=== PATIENT | male | born 1945 | race Caucasian/White ===

== ENCOUNTER → 2019-10-19 11:42 | Outpatient (BNVA) | payer MEDICARE, SELFPAY | PROVIDERS: Family Provider Nurse Practitioner Family; PCP Nurse Practitioner Family; Visit Provider Urology | DX: R97.20 Elevated prostate specific antigen [PSA] (principal); N40.1 Benign prostatic hyperplasia with lower urinary tract symptoms; N99.89 Other postprocedural complications and disorders of genitourinary system | CPT/HCPCS: 81001; 84153 ==

== ENCOUNTER 2019-10-30 10:37 | Outpatient (CLI) | payer MEDICARE, SELFPAY ==
--- NOTE | 2019-10-30 10:50 | XR_ITS ---
WS: [id number] PROCEDURE: XR chest 2V* [id number] CLINICAL INFORMATION: COPD COMPARISON: FINDINGS: Heart: Cardiomegaly. Lungs: Chronic emphysematous changes. No acute pulmonary infiltrates. A few calcified granulomas. Gordon gical clips at the base of the neck. No focal pneumonia. Bones: Normal visualized bony structures. XR/XR chest 2V* [id number] IMPRESSION: 1. Chronic emphysematous changes appear stable. 2. No new pulmonary infiltrates. 3. A few calcified granulomas.
== END 2019-10-30 10:38 | disposition home or self-care (01) ==
PROVIDERS: Family Provider Nurse Practitioner Family; PCP Nurse Practitioner Family; Visit Provider Nurse Practitioner Family
DX: J44.9 Chronic obstructive pulmonary disease, unspecified (principal); E87.1 Hypo-osmolality and hyponatremia
CPT/HCPCS: 71046

== ENCOUNTER 2019-11-08 03:13 | Emergency (ER) | payer MEDICARE, SELFPAY ==
[2019-11-08 03:18] VITALS: BP 141/106; PULSE 73; RESP 16; TEMP 37; O2SAT 95; BMI 28.0
--- NOTE | 2019-11-08 03:32 | ED_ITS ---
HPI - General Adult General: Chief complaint: General Medical Stated complaint: UNCONTROLLED SHAKING Time Seen by Provider: 11/08/19 03:16 Source: patient Mode of arrival: ambulatory Limitations: no limitations History of Present Illness: HPI narrative: Patient is a 73-year-old male states he has had a increasing tremor over the last 3 to 4 days. He is started on a new medicine finasteride which he stopped taking a week ago as he felt it was making his tremors worse. He states that he is unable to sleep due to the tremors. He states he also has history of thyroid issues. He denies any worsening improving factors. He denies any pain. He denies any fevers. MD complaint: tremors Onset (ago): day(s) Severity: moderate Relieving factors: none Exacerbating factors: none Associated symptoms: Deny chest pain, dyspnea, headache(s), nausea, rash or vomiting Review of Systems Const: Denies: fever, chills, body aches or change in appetite Eyes: Denies: blurry vision or eye discomfort ENMT: Denies: throat pain or dental pain Card: Denies: chest pain Resp: Denies: shortness of breath GI: Denies: abdominal pain, nausea, vomiting or diarrhea : Denies: painful urination Musc: Denies: neck pain or back pain Skin/Breast: Denies: rash Neuro: Denies: headache Psych: Denies: depression Damion/Lymph: Denies: easy bruising All/Imm: Denies: hives PFSH ED PFSH: Medical History (Updated 11/08/19 @ 04:47 by Eula Clay MD) BPH NOS w ur obs/LUTS COPD (chronic obstructive pulmonary disease) Elevated PSA Social History (Updated 10/16/19 @ 10:17 by Neha Vann RN) Smoking and tobacco status: former smoker Alcohol intake: never Marital status: Current occupational status: retired Physical Exam Const: COMMON NORMALS: no apparent distress, oriented x3 and healthy appearing HENMT: COMMON NORMALS: normocephalic and head/scalp atraumatic HEAD & SCALP: normocephalic and atraumatic Eye: COMMON NORMALS: PERRL and EOMs intact bilaterally PUPIL: Yes PERRL Neck/C-Spine: COMMON NORMALS: full ROM and supple Chest: COMMONS NORMALS: inspection of chest normal and palpation of chest normal Resp: COMMON NORMALS: normal respiratory effort, no retractions, no use of accessory muscles and clear to auscultation bilaterally AUSCULTATION: clear to auscultation bilaterally Cardio: COMMON NORMALS: regular rate, regular rhythm and no murmurs RATE: regular rate RHYTHM: regular rhythm GI: COMMON NORMALS: normal to inspection, nondistended, normoactive bowel sounds, soft to palpation, non-tender and no masses PALPATION: Yes soft Extremity: COMMON NORMALS: normal to inspection and full ROM NARRATIVE EXTREMITY EXAM: resting tremor Neuro: COMMON NORMALS: oriented x3, moves all extremities and no focal motor deficits Psych: COMMON NORMALS: mental status grossly normal, thought process normal and cooperative THOUGHT PROCESS: normal thought process Skin: COMMON NORMALS: no rashes or lesions noted and no wounds GENERAL SKIN EXAM: no rashes or lesions noted Course Vital Signs: Vital signs: Vital Signs Temperature 98.6 F 11/08/19 03:18 Pulse Rate 52 L 11/08/19 04:32 Respiratory Rate 18 11/08/19 04:32 Blood Pressure 136/103 11/08/19 04:32 Pulse Oximetry 98 11/08/19 04:32 MDM - General Adult MDM Narrative: Medical decision making narrative: Patient presents here with tremor is resolved with Ativan. Patient's TSH here is normal. This could been due to the new medicine finasteride he is to stop it. Patient is stable for discharge and is to return if worsening. Lab Data: Labs: Lab Results 11/08/19 Range/Units 03:50 TSH 4.96 H (0.27-4.20) uIU/ mL Discharge Plan Discharge Patient Disposition: Home, Self-Care Clinical Impression: Tremor Condition: Stable Prescriptions: No Action Spiriva Respimat 1.25 mcg/actuation mist 2 puff INHALATION QDAY RF: 0 Complete Multivitamin Tablet 1 tab PO QDAY RF: 0 albuterol sulfate 90 mcg/actuation HFA aerosol inhaler 2 puff INHALATION Q6H PRN (Reason: Shortness Of Breath) RF: 0 Daliresp 500 mcg tablet 500 mcg PO QDAY RF: 0 fluticasone propionate [Allergy Relief (fluticasone)] 50 mcg/actuation spray,suspension 1 spray INTRANASAL QDAY RF: 0 loratadine 10 mg capsule 10 mg PO QDAY RF: 0 pantoprazole 40 mg tablet,delayed release (DR/EC) 40 mg PO QDAY RF: 0 montelukast [Singulair] 10 mg tablet 10 mg PO QDAY RF: 0 levothyroxine [Synthroid] 125 mcg tablet 125 mcg PO QDAY RF: 0 tamsulosin 0.4 mg capsule 0.4 mg PO QDAY RF: 0 Discharge Orders: Discharge Order (Routine); Ordered 11/08/19 Ordered By: Eula Clay Referrals: Ba Humphries FNP [Family Provider] - Kincaid,DIONE Ram [Primary Care Provider] - 4-7 days Discharge Diet: Advance as tolerated Discharge Activity: Resume usual activity Discharge Date/Time: 11/08/19 04:55 Coding Level of Care Code ED Physical Laboratory Assistant for Chg Fwd Exam Problem Focused
[2019-11-08] MEDS: LORazepam 2 mg/mL INJ 1 mL 1 MG IVP (03:48)
[2019-11-08 04:32] VITALS: BP 136/103; PULSE 52; RESP 18; O2SAT 98
[2019-11-08 04:35] LABS: Thyroid Stimulating Hormone 4.96 uIU/mL (0.27-4.20)
[2019-11-08 04:54] VITALS: BP 139/91; PULSE 54; RESP 20; O2SAT 96
== END 2019-11-08 04:55 | disposition home or self-care (01) ==
PROVIDERS: Emergency Provider Emergency Medicine; Family Provider Nurse Practitioner Family; PCP Nurse Practitioner Family
DX: R25.1 Tremor, unspecified (principal); J44.9 Chronic obstructive pulmonary disease, unspecified
CPT/HCPCS: 36415; 84443; 96374; 96375; 99282; 99283; J2060

== ENCOUNTER → 2020-03-20 07:44 | Outpatient (BNVA) | payer MEDICARE, SELFPAY | PROVIDERS: Family Provider Nurse Practitioner Family; PCP Nurse Practitioner Family; Visit Provider Urology | DX: N40.1 Benign prostatic hyperplasia with lower urinary tract symptoms (principal); R97.20 Elevated prostate specific antigen [PSA] | CPT/HCPCS: 81001; 84153 ==

== ENCOUNTER 2020-04-18 09:05 | Outpatient (CLI) | payer MEDICARE, SELFPAY ==
--- NOTE | 2020-04-18 09:10 | US_ITS ---
WS: [id number] ULTRASOUND SOFT TISSUES RIGHT wrist HISTORY: Ganglion CYST OF WRIST COMPARISON: None available. TECHNIQUE: 2-D and color Doppler imaging is submitted. Ultrasound is directed to the area of concern along the medial wrist. There is a soft tissue predomin antly cystic mass which is very superficial measuring 6 mm in diameter. No tract extending to the sof t tissue. US/US soft tissue/extremity [id number] IMPRESSION: Very superficial predominantly cystic mass in the medial wrist. Differential in cludes ganglion and sebaceous cyst.
== END 2020-04-18 09:06 | disposition home or self-care (01) ==
PROVIDERS: PCP Nurse Practitioner Family; Visit Provider Nurse Practitioner Family
DX: M67.431 Ganglion, right wrist (principal); L72.3 Sebaceous cyst
CPT/HCPCS: 76882

== ENCOUNTER → 2020-05-19 08:39 | Outpatient (BNVA) | payer MEDICARE, SELFPAY | PROVIDERS: PCP Nurse Practitioner Family; Referring Provider Nurse Practitioner Family; Visit Provider Specialist | DX: M67.40 Ganglion, unspecified site (principal); R22.31 Localized swelling, mass and lump, right upper limb | CPT/HCPCS: 73110 ==

== ENCOUNTER → 2020-10-22 18:00 | Outpatient (BNVA) | payer MEDICARE, SELFPAY | PROVIDERS: PCP Nurse Practitioner Family; Visit Provider Family Medicine | DX: J44.9 Chronic obstructive pulmonary disease, unspecified (principal); K21.9 Gastro-esophageal reflux disease without esophagitis; N40.1 Benign prostatic hyperplasia with lower urinary tract symptoms; Z13.1 Encounter for screening for diabetes mellitus; Z13.6 Encounter for screening for cardiovascular disorders; Z76.89 Persons encountering health services in other specified circumstances; E89.0 Postprocedural hypothyroidism | CPT/HCPCS: 80053; 80061; 84443; 85025 ==

== ENCOUNTER → 2021-03-12 11:19 | Outpatient (BNVA) | payer MEDICARE, SELFPAY | PROVIDERS: PCP Family Medicine; Visit Provider Family Medicine | DX: J44.9 Chronic obstructive pulmonary disease, unspecified (principal); N40.1 Benign prostatic hyperplasia with lower urinary tract symptoms; K21.9 Gastro-esophageal reflux disease without esophagitis; E89.0 Postprocedural hypothyroidism; J18.9 Pneumonia, unspecified organism | CPT/HCPCS: 80053; 84439; 84443; 84481; 85025 ==

== ENCOUNTER 2021-03-18 11:50 | Outpatient (CLI) | payer MEDICARE, SELFPAY ==
--- NOTE | 2021-03-18 12:16 | CT_ITS ---
WS: [id number] LDCT LUNG CANCER SCREENING HISTORY: Z87.891 - Personal history of nicotine dependence TECHNIQUE: Axial imaging performed from the apices to 1 cm below the costophrenic angles. Coronal and sagittal reformats are submitted with axial MIP series. All CT scans at [facility] use at least one of these dose optimization techniques: automated exposure control; mA and/or kV adjustment per patient size (includes targeted exams where dose is matched to clinical indication); or iterativ e reconstruction. DLP: 70.52 mGy.cm DIvol: 1.58 mGy,1.58 mGy,1.58 mGy COMPARISON: 10/30/2017 Diagnostic quality: Satisfactory Lung Nodules: No new or suspicious pulmonary nodules. Lungs: Mild hyperinflation. There are scattered pleural-based plaques bilaterally consistent with asb estos exposure. Subsegmental areas of atelectasis at the lung bases with a few granulomata. There is mild thickening along the pleura. No pneumonia. Heart: Mild enlargement of the heart. No effusion. Other findings: Mild atherosclerosis aorta. No adenopathy. No hiatal hernia. CT/CT lung screening [id number] IMPRESSION: LUNG-RADS: 2-Benign Appearance or Behavior FOLLOW UP: 12 Month: Continue annual screening with LDCT OTHER FINDINGS (S MODIFIER): None.
== END 2021-03-18 11:51 | disposition home or self-care (01) ==
LOC: RAD 12:02
PROVIDERS: PCP Family Medicine; Visit Provider Internal Medicine Critical Care Medicine
DX: Z12.2 Encounter for screening for malignant neoplasm of respiratory organs (principal); Z87.891 Personal history of nicotine dependence
CPT/HCPCS: 71271

== ENCOUNTER → 2021-03-23 09:22 | Outpatient (BNVA) | payer MEDICARE, SELFPAY | PROVIDERS: PCP Family Medicine; Visit Provider Urology | DX: N40.1 Benign prostatic hyperplasia with lower urinary tract symptoms (principal); R97.20 Elevated prostate specific antigen [PSA] | CPT/HCPCS: 81003; 84153 ==

== ENCOUNTER → 2021-04-27 15:52 | Outpatient (BNVA) | payer MEDICARE, SELFPAY | PROVIDERS: PCP Family Medicine; Visit Provider Family Medicine | DX: E89.0 Postprocedural hypothyroidism (principal) | CPT/HCPCS: 84439; 84443; 84481 ==

== ENCOUNTER 2021-09-09 09:31 | Inpatient (IN) | payer MEDICARE, SELFPAY ==
[2021-09-09] VITALS (12 sets, daily range): BP systolic 110–137; BP diastolic 68–112; PULSE 71–119; RESP 12–94; TEMP 36.6–36.9; O2SAT 88–96; BMI 28.2
--- NOTE | 2021-09-09 10:01 | XR_ITS ---
WS: [id number] XR chest 1V portable [id number] REASON FOR EXAM: SOB FINDINGS: The chest is unchanged compared to 01/14/2020. Moderate tortuosity the thoracic aorta. Mild cardiomegaly. Chronic interstitial changes and calcified granulomatous disease in both hemithoraces. Pleural plaques. No acute pulmonary parenchymal or pleural abnormality. XR/XR chest 1V portable [id number] IMPRESSION: No acute chest abnormality.
--- NOTE | 2021-09-09 10:02 | ECG_ITS ---
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 Measurements Intervals [place] Rate: 119 P: 261 NM: 184 QRS: -49 QRSD: 99 T: 266 QT: 411 QTc: 580 Interpretive Statements Atrial flutter POSSIBLE RIGHT VENTRICULAR CONDUCTION DELAY [RSR (QR) IN V1/V2] LEFT ANTERIOR FASCICULAR BLOCK [QRS AXIS <= -45, QR IN I, RS IN II] POSSIBLE ANTERIOR MYOCARDIAL INFARCTION , OF INDETERMINATE AGE [30 ms Q WAVE IN V3/V4, OR R < 0.2 mV IN V4] MODERATE T-WAVE ABNORMALITY, CONSIDER LATERAL ISCHEMIA [-0.1+ mV T-WAVE IN I/aVL/V5/V6] MODERATE T-WAVE ABNORMALITY, CONSIDER INFERIOR ISCHEMIA [-0.1+ mV T-WAVE IN II/aVF] Compared to ECG 01/08/2018 06:40:17 Left anterior fascicular block now present.Myocardial infarct finding now present.T-wave abnormality now present.Possible ischemia now present Sinus rhythm no longer present.Ventricular premature complex(es) no longer present.Incomplete right bundle-branch block no longer present Electronically Signed On 09-09-2021 22:00:15 RADIO PRESENTER by Wilfredo Su M.D. [email or web address]
--- NOTE | 2021-09-09 10:10 | W.ED.SOB ---
Documented by User: MYRIAM Bobo 09/10/21 07:26 HPI - SOB/Dyspnea General: Chief Complaint: Shortness of Breath/Dyspnea Stated Complaint: DIFF BREATHING; HEART FLUTTER Time Seen by Provider: 09/09/21 10:01 History of Present Illness: HPI Narrative: Patient is a 75-year-old male who comes to the ED with shortness of breath and palpitations. Patient has a past medical history of hypothyroidism, GERD, COPD and BPH. Patient notes main complaint of shortness of breath and palpitations started when he woke up this morning. He recently had a dose change on his thyroid medication approximately a month and a half ago. Since thyroid medication dose was adjusted he states he has been having these episodes of palpitations. They usually occur after he takes his thyroid medication but do not last for very long and resolved. This morning he woke up with the palpitations and after he took his thyroid medication this morning his palpitations and shortness of breath got a little worse and have not resolved. He denies any chest pain, hemoptysis, diaphoresis, nausea/vomiting, abdominal pain, bladder or bowel symptoms. Associated symptoms: Reports palpitations; Deny abdominal pain, chest pain, fever(s), nausea, orthopnea or vomiting Review of Systems Const: Denies: fever(s), chills or fatigue Eyes: Denies: change in vision or eye discomfort ENMT: Denies: throat pain, odynophagia, nasal discharge or nasal congestion Card: Reports: palpitations; Denies: chest pain, edema, swelling of feet/ankles, dyspnea on exertion or orthopnea Resp: Reports: dyspnea; Denies: productive cough or non-productive cough GI: Denies: abdominal pain, nausea, vomiting, diarrhea, constipation or hematochezia : Denies: flank pain, difficulty urinating, dysuria or hematuria Musc: Denies: neck pain, back pain or extremity swelling Skin/Breast: Denies: rash or new lesions Neuro: Denies: headache(s), numbness in extremities or weakness in extremities PFSH ED PFSH: Medical History BPH NOS w ur obs/LUTS COPD (chronic obstructive pulmonary disease) Elevated PSA GERD (gastroesophageal reflux disease) Hypothyroidism Seasonal allergies Subcutaneous mass of right forearm Surgical History H/O thyroidectomy S/P hernia repair bilateral inguinal Family History Father , AT AGE 60 ABESTOS No problems noted. Mother , AT IN HER 80'S No problems noted. Social History Smoking and tobacco status: former smoker Quit status (tobacco): has quit using tobacco Year quit tobacco: 2016 Former quit date comment: Hx of 1 PPD x 50 Years Second hand smoke exposure: No Smoking risk assessment/counseling performed?: No Alcohol intake: current Alcohol intake frequency: few times a week Alcohol type: hard liquor Counseling given: No Counseling given: No Lives independently: Yes Household members: spouse Marital status: Current occupational status: retired History of recent travel: No Current gender identity: Male Physical Exam Const: COMMON NORMALS: no acute distress, patient oriented x3 and alert GENERAL APPEARANCE: cooperative and comfortable HENMT: COMMON NORMALS: normocephalic HEAD & SCALP: normocephalic MOUTH: Normal oral and palatal mucosa present THROAT: posterior oropharynx normal and uvula midline Neck/C-Spine: COMMON NORMALS: supple GENERAL: Yes normal visual inspection Resp: COMMON NORMALS: normal respiratory effort, No retractions, No use of accessory muscles and clear to auscultation bilaterally AUSCULTATION: clear to auscultation bilaterally Cardio: COMMON NORMALS: regular rhythm, S1 normal heart sound present, S2 normal heart sound present, No gallops present (Cardio), No clicks present (Cardio), No murmurs present (Cardio) and Peripheral pulses 2+ throughout RATE: tachycardic (120) RHYTHM: regular rhythm HEART SOUNDS: S1 normal heart sound present and S2 normal heart sound present PERIPHERAL PULSES: Peripheral pulses 2+ throughout GI: COMMON NORMALS: Normal to inspection, nondistended, normoactive bowel sounds present, Soft to palpation, non-tender and no masses PALPATION: Yes Soft to palpation : COMMON NORMALS: Yes no CVA tenderness BLADDER/KIDNEY EXAM: Yes no CVA tenderness Back/Pelvis: COMMON NORMALS: no CVA tenderness Extremity: COMMON NORMALS: normal to inspection Neuro: COMMON NORMALS: patient oriented x3 and moves all extremities SENSORIUM/ORIENTATION: Yes alert Skin: GENERAL SKIN EXAM: dry skin Course Vital Signs: Vital signs: Vital Signs Temperature 98.3 F 09/10/21 04:00 Pulse Rate 74 09/10/21 04:00 Respiratory Rate 17 09/10/21 04:00 Blood Pressure 100/67 09/10/21 04:00 Pulse Oximetry 93 09/10/21 04:00 MDM - SOB/Dyspnea MDM Narrative: Medical decision making narrative: Patient is a 75-year-old male comes to the ED with palpitations and shortness of breath. Denies any chest pain. Patient has no history of arrhythmia. Patient is tachycardic here in the ED with a rate of 119. Exam of patient is benign besides tachycardic heart rate. Troponins were negative. BNP-2,155. EKG showed an ectopic atrial tachycardia. Possible new onset of A. fib. D-dimer and TSH are elevated. I went and talked to Dr. Dinero about patient case and possible new onset of A. fib and possible new onset of CHF. He agreed that patient need to be admitted and contacted hospitalist and patient was admitted to the hospital. Lab Data: Attestation: I reviewed the patient's lab results. Labs: Lab Results 09/09/21 09/09/21 09/09/21 10:27 10:27 10:27 WBC 6.7 10^3/uL 10^3/ uL (4.0-10.0) RBC 4.69 10^6/uL 10^6 /uL (4.1-5.3) Hgb 14.2 g/dL g/dL (11.7-16.6) Hct 43.2 % % (42.0-52.0) MCV 92.1 fl fl (80-94) MCH 30.3 pg pg (28.0-34.0) MCHC 32.9 g/dL g/dL (30.0-36.0) RDW 13.6 % % (12.1-15.1) Plt Count 193 10^3/cmm 10^3 /cmm (130-400) MPV 8.8 fL fL (7.4-10.4) Neut % (Auto) 76.3 % % Lymph % (Auto) 13.2 % % [place] % (Auto) 8.0 % % Eos % (Auto) 1.5 % % Baso % (Auto) 0.9 % % Neut # (Auto) 5.12 10^3/uL 10^3 /uL (1.8-7.7) Lymph # (Auto) 0.9 10^3/uL 10^3/ uL (0.8-4.8) [place] # (Auto) 0.5 10^3/uL 10^3/ uL (0.2-0.9) Eos # (Auto) 0.1 10^3/uL 10^3/ uL (0.0-0.8) Baso # (Auto) 0.1 10^3/uL 10^3/ uL (0.0-0.1) Nucleated RBC % (a uto) 0 % % Nucleated RBCs # 0.0 /100WBC /100W BC D-Dimer Sodium 137 mmol/L mmol/L (136-145) Potassium 4.3 mmol/L mmol/L (3.5-5.1) Chloride 97 mmol/L L mmol/ L (98-107) Carbon Dioxide 24 mmol/L mmol/L (22-29) Anion Gap 20.3 H (5-19) BUN 12 mg/dL mg/dL (8-23) Creatinine 0.9 mg/dL mg/dL (0.7-1.2) GFR Calculation Not Reportable Glucose 95 mg/dL mg/dL (65-115) Calculated Osmolal ity 284 mOsm/kg L mOs m/kg (285-295) Calcium 8.8 mg/dL mg/dL (8.5-10.5) Iron TIBC % Saturation Unsat Iron Binding Total Bilirubin 0.4 mg/dL mg/dL (0.15-1.2) AST 23 U/L U/L (0-40) ALT 16 U/L U/L (0-41) Alkaline Phosphata se 70 IU/L IU/L (40-130) Troponin T Baselin e 37 ng/L H ng/L (0-15) Troponin T 120 Min [place] Delta Troponin T NT-Pro-B Natriuret Pep 2155 pg/mL H pg/m L (0-125) Total Protein 6.7 g/dL g/dL (6.6-8.7) Albumin 4.5 g/dL g/dL (3.5-5.2) Globulin 2.2 g/dL g/dL (1.3-4.6) TSH Free T4 Free T3 09/09/21 09/09/21 09/09/21 10:27 10:27 10:27 WBC RBC Hgb Hct MCV MCH MCHC RDW Plt Count MPV Neut % (Auto) Lymph % (Auto) [place] % (Auto) Eos % (Auto) Baso % (Auto) Neut # (Auto) Lymph # (Auto) [place] # (Auto) Eos # (Auto) Baso # (Auto) Nucleated RBC % (a uto) Nucleated RBCs # D-Dimer 1.67 ug/mIFEU H u g/mIFEU (0-0.59) Sodium Potassium Chloride Carbon Dioxide Anion Gap BUN Creatinine GFR Calculation Glucose Calculated Osmolal ity Calcium Iron 69 ug/dL ug/dL (59-158) TIBC 324 mcg/dl mcg/dl % Saturation 21.2 % % (20-50) Unsat Iron Binding 255 ug/dL ug/dL (112-347) Total Bilirubin AST ALT Alkaline Phosphata se Troponin T Baselin e Troponin T 120 Min [place] Delta Troponin T NT-Pro-B Natriuret Pep Total Protein Albumin Globulin TSH 6.69 uIU/mL H uIU /mL (0.27-4.20) Free T4 Free T3 09/09/21 09/09/21 10:27 13:30 WBC RBC Hgb Hct MCV MCH MCHC RDW Plt Count MPV Neut % (Auto) Lymph % (Auto) [place] % (Auto) Eos % (Auto) Baso % (Auto) Neut # (Auto) Lymph # (Auto) [place] # (Auto) Eos # (Auto) Baso # (Auto) Nucleated RBC % (a uto) Nucleated RBCs # D-Dimer Sodium Potassium Chloride Carbon Dioxide Anion Gap BUN Creatinine GFR Calculation Glucose Calculated Osmolal ity Calcium Iron TIBC % Saturation Unsat Iron Binding Total Bilirubin AST ALT Alkaline Phosphata se Troponin T Baselin e Troponin T 120 Min [place] 36.96 ng/L H ng/L (0-15) Delta Troponin T -0.04 ABS# L ABS# (0-10) NT-Pro-B Natriuret Pep Total Protein Albumin Globulin TSH Free T4 1.46 ng/dL ng/dL (0.82-1.77) Free T3 2.5 PG/ML PG/ML (2.0-4.4) Imaging Data^: CXR: Attestation: I personally reviewed and interpreted this imaging study as follows: Radiologist's impression: [address] [address] XRay Report Signed Patient: Michael Rogers Unit #: [id number] : 1945 Age/Sex: 75 / M ADM Date: 09/09/21 Loc: ER Room/Bed: Attending Dr: Ordering Provider/Ordering MD: Diego Verma Date of Service: 09/09/21 Procedure(s): XR chest 1V portable [id number] Accession Number(s): [id number] Report Number: [id number] WS: [id number] XR chest 1V portable [id number] REASON FOR EXAM: SOB FINDINGS: The chest is unchanged compared to 01/14/2020. Moderate tortuosity the thoracic aorta. Mild cardiomegaly. Chronic interstitial changes and calcified granulomatous disease in both hemithoraces. Pleural plaques. No acute pulmonary parenchymal or pleural abnormality. XR/XR chest 1V portable [id number] IMPRESSION: No acute chest abnormality. Dictated By: Juarez Vela Jr, MD Signed By: Juarez Vela Jr, MD Signed Date/Time: 09/09/21 1016 DD/ 1014 EKG Data^: EKG 1: Attestation: I personally reviewed and interpreted this EKG as follows: EKG Interpretation Date: 09/09/21 Interpretation: Ectopic atrial tachycardia, 119 bpm. Discharge Plan Discharge Patient Disposition: Admitted As Inpatient Admit Provider: El Rudd Clinical Impression: Atrial fibrillation, new onset, Chest pain, Shortness of breath Condition: Stable Coding Level of Care Code ED Flux Core Welder for Chg Fwd Exam Comprehensive Documented by User: Saad Dinero MD 09/09/21 19:15 HPI - SOB/Dyspnea General: Chief Complaint: Shortness of Breath/Dyspnea Stated Complaint: DIFF BREATHING; HEART FLUTTER Time Seen by Provider: 09/09/21 10:01 [facility] ED PFSH: Medical History BPH NOS w ur obs/LUTS COPD (chronic obstructive pulmonary disease) Elevated PSA GERD (gastroesophageal reflux disease) Hypothyroidism Seasonal allergies Subcutaneous mass of right forearm Surgical History H/O thyroidectomy S/P hernia repair bilateral inguinal Family History Father , AT AGE 60 ABESTOS No problems noted. Mother , AT IN HER 80'S No problems noted. Social History Smoking and tobacco status: former smoker Quit status (tobacco): has quit using tobacco Year quit tobacco: 2016 Former quit date comment: Hx of 1 PPD x 50 Years Second hand smoke exposure: No Smoking risk assessment/counseling performed?: No Alcohol intake: current Alcohol intake frequency: few times a week Alcohol type: hard liquor Counseling given: No Counseling given: No Lives independently: Yes Household members: spouse Marital status: Current occupational status: retired History of recent travel: No Current gender identity: Male Course Vital Signs: Vital signs: Vital Signs Temperature 98.3 F 09/10/21 04:00 Pulse Rate 74 09/10/21 04:00 Respiratory Rate 17 09/10/21 04:00 Blood Pressure 100/67 09/10/21 04:00 Pulse Oximetry 93 09/10/21 04:00 MDM - SOB/Dyspnea MDM Narrative: Medical decision making narrative: I discussed this case with MYRIAM Bobo. I have reviewed documentation, exam, and review of systems and agree as documented. I have reviewed labs and imaging. New onset atrial fibrillation, rates generally well controlled in the ED. Saad Dinero MD Emergency Medicine Lab Data: Labs: Lab Results 09/09/21 09/09/21 09/09/21 10:27 10:27 10:27 WBC 6.7 10^3/uL 10^3/ uL (4.0-10.0) RBC 4.69 10^6/uL 10^6 /uL (4.1-5.3) Hgb 14.2 g/dL g/dL (11.7-16.6) Hct 43.2 % % (42.0-52.0) MCV 92.1 fl fl (80-94) MCH 30.3 pg pg (28.0-34.0) MCHC 32.9 g/dL g/dL (30.0-36.0) RDW 13.6 % % (12.1-15.1) Plt Count 193 10^3/cmm 10^3 /cmm (130-400) MPV 8.8 fL fL (7.4-10.4) Neut % (Auto) 76.3 % % Lymph % (Auto) 13.2 % % [place] % (Auto) 8.0 % % Eos % (Auto) 1.5 % % Baso % (Auto) 0.9 % % Neut # (Auto) 5.12 10^3/uL 10^3 /uL (1.8-7.7) Lymph # (Auto) 0.9 10^3/uL 10^3/ uL (0.8-4.8) [place] # (Auto) 0.5 10^3/uL 10^3/ uL (0.2-0.9) Eos # (Auto) 0.1 10^3/uL 10^3/ uL (0.0-0.8) Baso # (Auto) 0.1 10^3/uL 10^3/ uL (0.0-0.1) Nucleated RBC % (a uto) 0 % % Nucleated RBCs # 0.0 /100WBC /100W BC D-Dimer Sodium 137 mmol/L mmol/L (136-145) Potassium 4.3 mmol/L mmol/L (3.5-5.1) Chloride 97 mmol/L L mmol/ L (98-107) Carbon Dioxide 24 mmol/L mmol/L (22-29) Anion Gap 20.3 H (5-19) BUN 12 mg/dL mg/dL (8-23) Creatinine 0.9 mg/dL mg/dL (0.7-1.2) GFR Calculation Not Reportable Glucose 95 mg/dL mg/dL (65-115) Calculated Osmolal ity 284 mOsm/kg L mOs m/kg (285-295) Calcium 8.8 mg/dL mg/dL (8.5-10.5) Iron TIBC % Saturation Unsat Iron Binding Total Bilirubin 0.4 mg/dL mg/dL (0.15-1.2) AST 23 U/L U/L (0-40) ALT 16 U/L U/L (0-41) Alkaline Phosphata se 70 IU/L IU/L (40-130) Troponin T Baselin e 37 ng/L H ng/L (0-15) Troponin T 120 Min [place] Delta Troponin T NT-Pro-B Natriuret Pep 2155 pg/mL H pg/m L (0-125) Total Protein 6.7 g/dL g/dL (6.6-8.7) Albumin 4.5 g/dL g/dL (3.5-5.2) Globulin 2.2 g/dL g/dL (1.3-4.6) TSH Free T4 Free T3 09/09/21 09/09/21 09/09/21 10:27 10:27 10:27 WBC RBC Hgb Hct MCV MCH MCHC RDW Plt Count MPV Neut % (Auto) Lymph % (Auto) [place] % (Auto) Eos % (Auto) Baso % (Auto) Neut # (Auto) Lymph # (Auto) [place] # (Auto) Eos # (Auto) Baso # (Auto) Nucleated RBC % (a uto) Nucleated RBCs # D-Dimer 1.67 ug/mIFEU H u g/mIFEU (0-0.59) Sodium Potassium Chloride Carbon Dioxide Anion Gap BUN Creatinine GFR Calculation Glucose Calculated Osmolal ity Calcium Iron 69 ug/dL ug/dL (59-158) TIBC 324 mcg/dl mcg/dl % Saturation 21.2 % % (20-50) Unsat Iron Binding 255 ug/dL ug/dL (112-347) Total Bilirubin AST ALT Alkaline Phosphata se Troponin T Baselin e Troponin T 120 Min [place] Delta Troponin T NT-Pro-B Natriuret Pep Total Protein Albumin Globulin TSH 6.69 uIU/mL H uIU /mL (0.27-4.20) Free T4 Free T3 09/09/21 09/09/21 10:27 13:30 WBC RBC Hgb Hct MCV MCH MCHC RDW Plt Count MPV Neut % (Auto) Lymph % (Auto) [place] % (Auto) Eos % (Auto) Baso % (Auto) Neut # (Auto) Lymph # (Auto) [place] # (Auto) Eos # (Auto) Baso # (Auto) Nucleated RBC % (a uto) Nucleated RBCs # D-Dimer Sodium Potassium Chloride Carbon Dioxide Anion Gap BUN Creatinine GFR Calculation Glucose Calculated Osmolal ity Calcium Iron TIBC % Saturation Unsat Iron Binding Total Bilirubin AST ALT Alkaline Phosphata se Troponin T Baselin e Troponin T 120 Min [place] 36.96 ng/L H ng/L (0-15) Delta Troponin T -0.04 ABS# L ABS# (0-10) NT-Pro-B Natriuret Pep Total Protein Albumin Globulin TSH Free T4 1.46 ng/dL ng/dL (0.82-1.77) Free T3 2.5 PG/ML PG/ML (2.0-4.4) Discharge Plan Discharge Patient Disposition: Admitted As Inpatient Admit Provider: El Rudd Clinical Impression: Atrial fibrillation, new onset, Chest pain, Shortness of breath Condition: Stable Coding Level of Care Code ED Flux Core Welder for [place] Fwd Exam Comprehensive
[2021-09-09 10:37] LABS: Basophils # 0.1 10^3/uL (0.0-0.1); Basophils % 0.9 %; Eosinophils # 0.1 10^3/uL (0.0-0.8); Eosinophils % 1.5 %; Hematocrit 43.2 % (42.0-52.0); Hemoglobin 14.2 g/dL (11.7-16.6); Lymphocytes # 0.9 10^3/uL (0.8-4.8); Lymphocytes % 13.2 %; Mean Corpuscular HGB Conc 32.9 g/dL (30.0-36.0); Mean Corpuscular Hemoglobin 30.3 pg (28.0-34.0); Mean Corpuscular Volume 92.1 fl (80-94); Mean Platelet Volume 8.8 fL (7.4-10.4); Monocytes # 0.5 10^3/uL (0.2-0.9); Neutrophils # 5.12 10^3/uL (1.8-7.7); Neutrophils % 76.3 %; Nucleated Red Blood Cells % 0 %; Platelet Count 193 10^3/cmm (130-400); Red Blood Count 4.69 10^6/uL (4.1-5.3); Red Cell Distribution Width 13.6 % (12.1-15.1); White Blood Count 6.7 10^3/uL (4.0-10.0)
[2021-09-09 11:02] LABS: Troponin(5th) Baseline 37 ng/L (0-15)
[2021-09-09 11:10] LABS: Alanine Aminotransferase 16 U/L (0-41); Albumin Level 4.5 g/dL (3.5-5.2); Alkaline Phosphatase 70 IU/L (40-130); Anion Gap 20.3 (5-19); Aspartate Amino Transferase 23 U/L (0-40); Blood Urea Nitrogen 12 mg/dL (8-23); Calcium 8.8 mg/dL (8.5-10.5); Carbon Dioxide 24 mmol/L (22-29); Chloride 97 mmol/L (98-107); Globulin 2.2 g/dL (1.3-4.6); Glucose 95 mg/dL (65-115); NT Pro B Type Natriuretic Pept 2155 pg/mL (0-125); Osmolality Calculated 284 mOsm/kg (285-295); Potassium 4.3 mmol/L (3.5-5.1); Sodium 137 mmol/L (136-145); Total Bilirubin 0.4 mg/dL (0.15-1.2); Total Protein 6.7 g/dL (6.6-8.7)
--- NOTE | 2021-09-09 12:02 | ECG_ITS ---
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 Measurements Intervals [place] Rate: 100 P: 93 PA: 151 QRS: -41 QRSD: 132 T: 266 QT: 358 QTc: 464 Interpretive Statements Atrial flutter with variable block LEFT AXIS DEVIATION [QRS AXIS < -30] INTRAVENTRICULAR CONDUCTION DELAY [130+ ms QRS DURATION] POSSIBLE ANTEROLATERAL MYOCARDIAL INFARCTION , OF INDETERMINATE AGE [30 ms Q WAVE IN I/aVL/V3-V6] Nonspecific T wave changes Compared to ECG 09/09/2021 09:45:30 Left-axis deviation now present Intraventricular conduction delay now present Left anterior fascicular block no longer present Possible ischemia no longer present Myocardial infarct finding still present Electronically Signed On 09-09-2021 22:12:15 TUTOR by Wilfredo Su M.D. [id number]
--- NOTE | 2021-09-09 12:22 | PC.NURSE ---
patient refused covid testing, provider notified.
[2021-09-09 12:42] LABS: D Dimer 1.67 ug/mIFEU (0-0.59)
--- NOTE | 2021-09-09 12:46 | CT_ITS ---
WS: [id number] CTA OF THE CHEST WITH PULMONARY EMBOLISM PROTOCOL TECHNIQUE: High-resolution contrast enhanced CTA of the chest with coronal and sagittal reformatted i mages with pulmonary embolism protocol. MIP images are also reviewed. CLINICAL INFORMATION: tachycardia, chest pain, sob, elevated ddimer COMPARISON: None. DLP: 664.[address] scans at [facility] use at least one of these dose optimization techniques: automated e xposure control; mA and/or kV adjustment per patient size (includes targeted exams where dose is matc hed to clinical indication); or iterative reconstruction. FINDINGS: Proximal main pulmonary arteries are normal. Normal segmental and subsegmental pulmonary arteries. No evidence of pulmonary embolus. No mediastinal or hilar lymphadenopathy. No axillary lymphadenopathy. Normal caliber thoracic aorta. Small esophageal hiatal hernia. Subsegmental atelectasis the left greater than right lung base. No fo tramaine pneumonia or pleural fluid. Micronodular tree-in-bud infiltrates in the right upper lobe laterall y along the fissure. This is unchanged from previous. A few small pleural plaques. CT/CT angio chest PE protcl [id number] IMPRESSION: 1. No evidence of pulmonary embolus. 2. Normal caliber thoracic aorta. 3. Moderate chronic emphysematous changes with subsegmental atelectasis/fibros is in the lung bases. 4. No acute pulmonary infiltrates. No focal pneumonia or pleural fluid. 5. Small esophageal hiatal hernia. 6. No other significant findings.
[2021-09-09] MEDS: iohexol 350 mg/mL 100 mL Btl IV (13:09)
[2021-09-09] MEDS: enoxaparin 100 mg/mL Syringe SUBCUT (14:07)
[2021-09-09 14:14] LABS: Troponin 5 2HR 36.96 ng/L (0-15)
[2021-09-09 14:15] LABS: Troponin 5 2HR Delta -0.04 ABS# (0-10)
--- NOTE | 2021-09-09 15:14 | P.HP_ITS ---
Providers/Chief Complaint Primary Care Provider: Laura Harrington MD Chief Complaint: DIFF BREATHING; HEART FLUTTER History of Present Illness Michael Rogers is a 75 year old male with past medical history of hypothyroidism, COPD, post polio syndrome presented to the ER today fluttery feeling on the chest going on and off for last 2 months increased over last 2 to 3 days associated with mild dizziness especially on getting out of bed. Not associated with nausea, vomiting, difficulty in breathing, headache. Patient denies any history of stroke. Does give history of atrial fibrillation in his father and son. Patient is a former smoker, not vaccinated for COVID-19 and does not want to be vaccinated for tested for COVID-19. In the ER patient was found to be having atrial fibrillation and flutter with heart rate going up to 1 30s at rest saturating 95%. Review of Systems General: Reports: 10 or more systems reviewed and unremarkable except in HPI and below Const: Denies: fever(s), chills, body aches, change in appetite, change in weight, malaise, night sweats, diaphoresis, change in sleep pattern, daytime sleepiness or snoring Eyes: Denies: change in vision, blurry vision, photophobia, eye discomfort or eye discharge ENMT: Denies: throat pain, enlarged tonsils, hoarseness, mouth pain, oral sores, dry mouth, tinnitus, nasal congestion or post nasal drip Card: Denies: chest pain, palpitations, irregular heart rhythm, edema, swelling of feet/ankles, lightheadedness, syncope, pre-syncope, dyspnea on exertion, orthopnea, leg pain with exertion or acrocyanosis Resp: Denies: dyspnea, productive cough, non-productive cough, wheezing, strid or, pain on inspiration, change in phlegm color, hemoptysis or chest congestion GI: Denies: abdominal pain, nausea, vomiting, hematemesis, coffee ground emesis, dysphagia, heartburn, diarrhea, constipation, bloating, GI cramping, change in bowel habits, pain on defecation, hematochezia or melena : Denies: flank pain, difficulty urinating, dysuria, urinary frequency, urinary urgency, urinary hesitancy, urinary dribbling, difficulty starting urination, change in urine stream, nocturia or hematuria Musc: Denies: neck pain, back pain, extremity pain, joint pain, joint swelling, joint redness, joint stiffness or limited range of motion Neuro: Denies: headache(s), numbness in extremities, weakness in extremities, sensory changes, lack of coordination, difficulty walking, frequent falls, dizziness, vertigo, confusion, Slurred speech present, difficulty communicating thoughts or seizure-like activity Psych: Denies: anxiety, depression, mood swings, panic attacks, hopelessness or irritability Endo: Denies: polyuria, polydipsia, tired all the time, cold intolerance, excessive sweating, flushing or heat intolerance Damion/Lymph: Denies: easy bruising or easy bleeding All/Imm: Denies: tongue swelling, facial swelling or acute wheezing Medications/Allergies Home Medications Medication Instructions Recorded Confirmed Last Taken Type multivitamin,aj-[id number]-[id number] 1 tab PO QDAY 10/19/19 05/20/21 11/07/19 History 1 tablet EYE HEALTH COMPLEX PO 05/19/20 05/20/21 Unknown History cholecalciferol (vitamin D3) 25 25 mcg PO DAILY 05/19/20 05/20/21 Unknown History mcg (1,000 unit) capsule psyllium husk 0.52 gram capsule 0.52 gm PO DAILY 05/19/20 05/20/21 Unknown History silver 0.01 mcg/mL subcutaneous mcg SUBCUT 05/19/20 05/20/21 Unknown History solution MOMORDICA 1 ml PO TID 10/22/20 05/20/21 Unknown History albuterol sulfate 90 mcg/actuation 2 puff INHALATION Q6H PRN 90 Days 10/22/20 05/20/21 Unknown Rx aerosol inhaler #54 g fluticasone propionate 50 1 spray INTRANASAL QDAY 90 Days 10/22/20 05/20/21 Unknown Rx mcg/actuation nasal #47.4 ml spray,suspension loratadine 10 mg capsule 10 mg PO QDAY 90 Days #90 cap 10/22/20 05/20/21 Unknown Rx montelukast 10 mg tablet 10 mg PO QDAY 90 Days #90 tab 10/22/20 05/20/21 Unknown Rx albuterol sulfate 2.5 mg INHALATION Q4H PRN #180 ml 03/12/21 05/20/21 Unknown Rx fluticasone 500 mcg-salmeterol 50 1 inh INHALATION BID 90 Days #180 03/12/21 05/20/21 Unknown Rx mcg/dose blistr powdr for ea inhalation pantoprazole 40 mg tablet,delayed 40 mg PO QDAY 90 Days #90 tab 03/12/21 05/20/21 Unknown Rx release roflumilast 500 mcg tablet 500 mcg PO QDAY 90 Days #90 tab 03/12/21 05/20/21 Unknown Rx tamsulosin 0.4 mg capsule 0.8 mg PO DAILY 90 Days #180 cap 03/12/21 05/20/21 Unknown Rx Synthroid 125 mcg tablet 125 mcg PO QDAY 90 Days #90 tab NS 05/05/21 05/20/21 Unknown Rx tiotropium bromide [Spiriva INHALATION 05/20/21 05/20/21 Unknown History Respimat] Allergies Allergy/AdvReac Type Severity Reaction Status Date / Time No Known Allergies Allergy Verified 05/20/21 13:22 PFSH Acute PFSH: Medical History (Updated 09/09/21 @ 15:16 by El Rudd MD) BPH NOS w ur obs/LUTS COPD (chronic obstructive pulmonary disease) Elevated PSA GERD (gastroesophageal reflux disease) Hypothyroidism Seasonal allergies Subcutaneous mass of right forearm Surgical History H/O thyroidectomy S/P hernia repair bilateral inguinal Family History Father , AT AGE 60 ABESTOS No problems noted. Mother , AT IN HER 80'S No problems noted. Social History Smoking and tobacco status: former smoker Quit status (tobacco): has quit using tobacco Year quit tobacco: 2017 Former quit date comment: Hx of 1 PPD x 50 Years Second hand smoke exposure: No Smoking risk assessment/counseling performed?: No Alcohol intake: current Alcohol intake frequency: few times a week Alcohol type: hard liquor Counseling given: No Counseling given: No Lives independently: Yes Household members: spouse Marital status: Current occupational status: retired History of recent travel: No Current gender identity: Male Vitals/I&O/Wt Last Vital Signs Temp 98.4 F 09/09/21 09:38 Pulse 103 H 09/09/21 12:37 Resp 12 09/09/21 12:37 BP 127/87 09/09/21 12:37 Pulse Ox 95 09/09/21 12:37 Weight last 48 hrs Weight 99.79 kg Physical Exam Narrative: EXAM NARRATIVE: General: No acute distress, AO x3, hoarse voice, laying comfortably in bed on room air HEENT: PERRLA, pupils bilaterally equal and reactive Chest: Bilateral bronchial breath sounds, occasional rhonchi present all over the lung lora, equal good air entry bilaterally CVS: S1-S2 irregularly irregular, no murmurs, no tachycardia, no gallops, no rubs Abdomen: Soft, nontender, no organomegaly, bowel sounds present Neuro: No focal deficits, no facial deformity, AO x3, power 5/5 in all limbs Data : 09/09/21 10:27 09/09/21 10:27 A&P Assessment and plan (1) Atrial fibrillation/flutter: Status: Acute (2) Hypothyroidism: Status: Acute Qualifiers: Hypothyroidism type: postoperative Qualified Code(s): E89.0 - Postprocedural hypothyroidism (3) COPD (chronic obstructive pulmonary disease): Status: Acute Qualifiers: COPD type: chronic bronchitis Chronic bronchitis type: mucopurulent Qualified Code(s): J41.1 - Mucopurulent chronic bronchitis (4) Chest pressure: Status: Acute Additional A&P Information Atrial flutter/fibrillation: New diagnosis but seems to be going on for some time. Oral Cardizem 60 mg 3 times daily. Will uptitrate keeping heart rate less than 100. Discussed with patient regarding need for anticoagulation for stroke prevention. Patient verbalized understanding and is agreeable. For now start patient on full dose Lovenox 1 mg/kg body weight every 12 hourly. Echocardiogram once heart rate is less than 100. Check TSH, iron panel, lipid panel, HbA1c, urinalysis, urine drug screen. Cannot rule out unstable angina given the history of smoking. Once the heart rate less than 100 will do Lexiscan stress test. Patient verbalized understanding. COPD: Continue with home dose of inhalers. No exacerbation currently. Elevated D-dimer: CTA negative for pulmonary embolism. Most likely secondary to atrial fibrillation. Will check lower limb Dopplers. Full code. Lovenox for DVT prophylaxis. Protonix for PUD prophylaxis. Cardiac diet. Attestations Medical Necessity Statement*: Admission for less than 2 midnights for managem ent of new atrial fibrillation Time Spent in Patient Care: Greater than 35 minutes (>than 50% of time spent in counselling and/or direct pt care on unit) . Coding Level of Care Code Acute Molding Line Assistant for Chg Fwd Diagnoses Atrial fibrillation/flutter Hypothyroidism E89.0 Hypothyroidism type: postoperative COPD (chronic obstructive pulmonary disease) J41.1 COPD type: chronic bronchitis Chronic bronchitis type: mucopurulent Chest pressure R07.89
--- NOTE | 2021-09-09 15:14 | USCV_ITS ---
Michael Rogers Age: 75 Gender: M : 1945 Exam Date: 09/09/2021 15:31 Ordering Phys: El Rudd MD Technologist: WILMER [place] [facility] [place]: R/O D[place] PROCEDURES: Venous duplex imaging was performed in bilateral lower extremities. The following venous structures were evaluated: common femoral vein, profunda vein, proximal portion of the greater saphenous vein, superficial femoral vein, and the popliteal vein. In addition, the posterior tibial and peroneal trunk were evaluated. Serial compression, augmentation maneuvers, and spectral Doppler flow evaluation were performed. FINDINGS: Normal 2-D Doppler and augmentation and compressibility throughout the lower extremity venous structures. Additional imaging through the proximal calf veins also reveals no thrombus. Limited evaluation of the greater saphenous vein is patent with no thrombus.. CONCLUSIONS No evidence of right lower extremity DVT. No evidence of left lower extremity DVT. Dwight Gallo MD (Electronically Signed) Final Date: 09 September 2021 17:04 S
[2021-09-09] MEDS: dilTIAZem 60 mg Tablet PO ×2 (15:36→21:06)
[2021-09-09 15:42] LABS: Iron 69 ug/dL (59-158); Percent Saturation 21.2 % (20-50); Total Iron Binding Capacity 324 mcg/dl; Unsaturated Iron Binding 255 ug/dL (112-347)
[2021-09-09] MEDS: pantoprazole DR 40 mg Tablet PO (15:45)
[2021-09-09 15:49] LABS: Thyroid Stimulating Hormone 6.69 uIU/mL (0.27-4.20)
[2021-09-09 16:02] LABS: Add Urine Microscopic? NO; Bilirubin Urine Neg (Negative); Blood Urine Neg (Negative); Glucose Urine UA Norm (Normal); Ketones Urine Negative (Negative); Leukocyte Esterase Urine Negative (Negative); Nitrate Urine Negative (Negative); Protein Urine Neg (Negative); Urine Appearance Clear (CLEAR); Urine Color Straw (Yellow); Urobilinogen Urine Norm (Negative); pH Urine 6 (5-7)
--- NOTE | 2021-09-09 16:02 | ECG_ITS ---
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 Measurements Intervals [place] Rate: 95 P: AL: QRS: -39 QRSD: 108 T: 0 QT: 331 QTc: 418 Interpretive Statements ATRIAL FLUTTER/TACHYCARDIA LEFT AXIS DEVIATION [QRS AXIS < -30] INCOMPLETE RIGHT BUNDLE BRANCH BLOCK [90+ ms QRS DURATION, TERMINAL R IN V1/V2, 40+ ms S IN I/aVL/V4/V5/V6] SEPTAL MYOCARDIAL INFARCTION , PROBABLY OLD [40+ ms Q WAVE IN V1/V2] MODERATE T-WAVE ABNORMALITY, CONSIDER LATERAL ISCHEMIA [-0.1+ mV T-WAVE IN I/aVL/V5/V6] Compared to ECG 09/09/2021 12:33:30 Incomplete right bundle-branch block now present T-wave abnormality now present Possible ischemia now present Atrial-paced complex(es) or rhythm no longer present Intraventricular conduction delay no longer present Myocardial infarct finding still present Electronically Signed On 09-09-2021 22:14:53 LIFT BUILDER WHOLE by Wilfredo Su M.D. [email or web address] [id number]
[2021-09-09 16:03] LABS: Charge for UA Resulting for Rev
[2021-09-09 16:19] LABS: Amphetamines Screen Urine Negative (Negative); Barbiturates Screen Urine Negative (Negative); Benzodiazepines Screen Urine Negative (Negative); Cocaine Screen Urine Negative (Negative); Opiate Screen Urine Negative (Negative); PCP Screen Urine Negative (Negative); THC Screen Urine Negative (Negative)
[2021-09-09 17:02] LABS: Troponin 5 6HR 39.23 ng/L (0-15); Troponin 5 6HR Delta 2.23 ng/L (0-12)
--- NOTE | 2021-09-09 17:22 | ECG_ITS ---
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 The perfusion scan will be documented separately. DATA: Baseline heart rate was 113 beats per minute. Baseline blood pressure was 138/100 millimeters of mercury. Target heart rate was 147. Maximum heart rate achieved was 122. which was 82% of the predicted target heart rate. Maximum blood pressure was 138/100 millimeters of mercury. The reason for ending the test was completion of the protocol. The patient did not experience any symptoms. ELECTROCARDIOGRAM: BASELINE: Sinus tachycardia. Normal axis. Right bundle branch block otherwise, no ST-T changes suggestive of ischemia noted. EXERCISE: After Lexiscan injection, no ST-T changes suggestive of ischemic noted. No arrhythmia noted. CONCLUSION: Please note due to baseline abnormality of the EKG specificity and sensitivity of the EKG portion of LexiScan MIBI stress test will be low 1. EKG not suggestive of ischemia 2. Lexiscan injection unremarkable. 3. Perfusion scan will be documented separately. Electronically Signed On 09-15-2021 21:55:34 HADOOP ADMIN by CESAR VARGAS [id number]
[2021-09-09] MEDS: ferrous gluconate 324 mg Tablet PO (17:44)
--- NOTE | 2021-09-09 18:26 | PC.NURSE ---
Patient is refusing Rapid covid test. Spoke with Dr. Rudd who states he does not have to take the test and he does not need to be on isolation.
[2021-09-09 20:41] LABS: Free T4 Free Thyroxine 1.46 ng/dL (0.82-1.77); T3 Free 2.5 PG/ML (2.0-4.4)
[2021-09-09] MEDS: benzonatate 100 mg Capsule PO (21:06)
[2021-09-10] VITALS (12 sets, daily range): BP systolic 100–121; BP diastolic 63–88; PULSE 74–120; RESP 16–23; TEMP 36.4–36.9; O2SAT 92–96
--- NOTE | 2021-09-10 05:00 | USCV_ITS ---
Michael Rogers Age: 75 Gender: M : 1945 Exam Date: 09/10/2021 06:49 Ordering Phys: El Rudd MD Technologist: Thanh Mccormick [place] [facility] [place]ication: Shortness of breath BP: / HR: 96 Rhythm: Sinus Technical Quality: Adequate MEASUREMENTS (Male / Female) Normal Values 2D ECHO LV Diastolic Diameter PLAX 5.1 cm 4.2 - 5.9 / 3.9 - 5.3 cm LV Systolic Diameter PLAX 3.6 cm IVS Diastolic Thickness 1.1 cm 0.6 - 1.0 / 0.6 - 0.9 cm IVS Systolic Thickness 1.3 cm LVPW Diastolic Thickness 1.4 cm 0.6 - 1.0 / 0.6 - 0.9 cm LVPW Systolic Thickness 1.5 cm LVOT Diameter 2.1 cm LV Ejection Fraction 2D Teich 45.1 % LV Ejection Fraction MOD 2C 42.7 % LV Ejection Fraction 2C AL 43.1 % LA Diameter 4.3 cm LA Width 4.3 cm LA Height 5.7 cm RA Width 4.7 cm RA Height 6.5 cm M-MODE Aortic Annulus Diameter 3.8 cm LA Ao Ratio MM 1.2 MV E Point Septal Separation 2.0 cm DOPPLER AV Peak Velocity 115.0 cm/s LVOT Peak Velocity 89.0 cm/s AV Area Cont Eq vti 2.6 cm squared AV Area Cont Eq pk 2.8 cm squared MV Area PHT 5.0 cm squared Mitral E to A Ratio 1.4 MV E' Velocity 43.0 cm/s Mitral E to MV E' Ratio 7.6 Mitral E to LV E' Lateral Ratio 6.5 Mitral E to LV E' Septal Ratio 9.0 TR Peak Velocity 170.0 cm/s TR Peak Gradient 11.6 mmHg TV Peak E Velocity 80.0 cm/s Right Atrial Pressure 3.0 mmHg Pulmonary Artery Systolic Pressu 14.6 mmHg FINDINGS Left Ventricle Normal left ventricular cavity size. Normal left ventricular wall thickness. Severely decreased left ventricular systolic function. Left ventricular ejection fraction is estimated at 25- 30 %. There seems to be global hypokinesis more pronounced in anterior septal and apical mojica. Normal diastolic function. Right Ventricle Normal right ventricular size and systolic function. Right ventricular systolic pressure 23 mmHg. Right Atrium Normal right atrial size. Right atrial pressure estimated at 8 mmHg. Left Atrium Normal left atrial size. Mitral Valve Thickened mitral valve. No mitral valve stenosis. Trace mitral valve regurgitation. Aortic Valve Mildly thickened trileaflet aortic valve. No aortic valve stenosis. No aortic valve regurgitation. Tricuspid Valve Structurally normal tricuspid valve. No tricuspid valve stenosis. Mild tricuspid valve regurgitation. Pulmonic Valve Pulmonic valve not well visualized. No pulmonary valve regurgitation. Pericardium No pericardial effusion. Aorta Normal-sized aortic root. CONCLUSIONS 1. This is a technically difficult study. 2. Normal left ventricular cavity size and wall thickness. Severely decreased left ventricular systolic function. Left ventricular ejection fraction is estimated at 25-30 %. There seems to be global hypokinesis more pronounced in anterior, septal and apical mojica. Normal diastolic function. 3. Mild tricuspid valve regurgitation. 3. Pulmonary artery pressure estimated at 23 mmHg. 4. No prior similar studies to compare. Chery Bertrand MD (Electronically Signed) Final Date: 10 September 2021 15:03 S
[2021-09-10 06:27] LABS: Basophils % 0.6 %; Eosinophils # 0.2 10^3/uL (0.0-0.8); Eosinophils % 3.3 %; Hematocrit 39.8 % (42.0-52.0); Hemoglobin 13.3 g/dL (11.7-16.6); Lymphocytes # 1.3 10^3/uL (0.8-4.8); Lymphocytes % 20.6 %; Mean Corpuscular HGB Conc 33.4 g/dL (30.0-36.0); Mean Corpuscular Hemoglobin 30.6 pg (28.0-34.0); Mean Corpuscular Volume 91.5 fl (80-94); Mean Platelet Volume 9.1 fL (7.4-10.4); Monocytes # 0.7 10^3/uL (0.2-0.9); Monocytes % 10.6 %; Neutrophils # 4.07 10^3/uL (1.8-7.7); Neutrophils % 64.7 %; Nucleated Red Blood Cells % 0 %; Platelet Count 203 10^3/cmm (130-400); Red Blood Count 4.35 10^6/uL (4.1-5.3); Red Cell Distribution Width 13.8 % (12.1-15.1); White Blood Count 6.3 10^3/uL (4.0-10.0)
[2021-09-10 06:51] LABS: Alanine Aminotransferase 14 U/L (0-41); Albumin Level 3.7 g/dL (3.5-5.2); Alkaline Phosphatase 62 IU/L (40-130); Anion Gap 18.1 (5-19); Aspartate Amino Transferase 20 U/L (0-40); Blood Urea Nitrogen 11 mg/dL (8-23); Calcium 8.4 mg/dL (8.5-10.5); Carbon Dioxide 24 mmol/L (22-29); Chloride 101 mmol/L (98-107); Globulin 2.6 g/dL (1.3-4.6); Glucose 89 mg/dL (65-115); Magnesium 1.7 mg/dL (1.7-2.3); Osmolality Calculated 287 mOsm/kg (285-295); Phosphorus 3.1 mg/dL (2.5-4.5); Potassium 4.1 mmol/L (3.5-5.1); Sodium 139 mmol/L (136-145); Total Bilirubin 0.4 mg/dL (0.15-1.2); Total Protein 6.3 g/dL (6.6-8.7)
[2021-09-10 07:05] LABS: Chol HDL Ratio 3.11 mg/dL (1.0-5.00); Cholesterol 193 mg/dL (0-200); HDL Cholesterol 62 mg/dL (60-100); LDL Cholesterol Calculated 114 mg/dL (50-129); Triglycerides 85 mg/dL (0-150); VLDL Cholestrol Calculation 17 mg/dL (0-30)
[2021-09-10 07:20] LABS: Estmated Average Glucose 108; Hemoglobin A1C 5.4 % (4.0-6.0)
[2021-09-10] MEDS: regadenoson 0.4 Mg/5 ml Syringe IVP (08:23)
[2021-09-10] MEDS: tamsulosin 0.4 mg Capsule 0.8 MG PO (10:02)
[2021-09-10] MEDS: montelukast sodium 10 mg Tablet PO (10:02)
[2021-09-10] MEDS: levothyroxine 125 mcg Tablet PO (10:02)
[2021-09-10] MEDS: dilTIAZem 60 mg Tablet PO ×3 (10:02→19:04)
[2021-09-10] MEDS: ferrous gluconate 324 mg Tablet PO ×2 (10:03→19:04)
[2021-09-10] MEDS: benzonatate 100 mg Capsule PO ×2 (10:03→13:53)
[2021-09-10] MEDS: roflumilast 500 mcg Tablet PO (10:03)
[2021-09-10] MEDS: loratadine 10 mg Tablet PO (10:04)
[2021-09-10] MEDS: fluticasone nasal spray 16gm Btl 1 SPRAY INTRANASAL ×2 (10:07→19:05)
[2021-09-10] MEDS: enoxaparin 100 mg/mL Syringe SUBCUT ×2 (10:08→21:34)
[2021-09-10] MEDS: dilTIAZem 30 mg Tablet PO (11:10)
--- NOTE | 2021-09-10 14:09 | PC.CHAP ---
Pastoral Care Encounter/Spiritual Assessment Type of Contact [] Declined engineering group leader visit [] Patient/Family/Request visit [] Outpatient visit [] Follow-up visit [] Physician referral [] Code/Alert [x] Routine visit [] Staff referral [] Actively dying [] Patient sleeping [] Family support [] [] Out of room [] Palliative care [] [x] Receiving care in room [] Pre-surgical visit [] Trauma [x] Long length of stay [] ICU visit [] Other: Relational/Emotional Strength [x] Patient feels connected with others/family/visitors/staff [] Distress [] Loneliness/isolation [] Abandonment Spirituality of Patient [x] Person of Sariah [] Attends Presybeterian of their Sariah [x] Believes in Prayer [] Reads Bible or Confucianism materials [] There are Spiritual issues to be addressed Intermediate Project Manager Interventions [x] Prayer [xx] Active listening [x] Non-anxious presence [x] Spiritual/emotional support [] Crisis/trauma care [x] Spiritual counseling [] Bereavement support [] Provided bereavement packet [] Provided Bible/devotional materials [] Provided toy/stuffed animal, coloring book to patient or family member [] Provided Communion [] Anointing/Martin [] Salvation [x] Completed spiritual assessment [] Other: Impact on Illness or Injury [] Angry [] Fearful [x] Anxious [] Often cries [] Exhaustion [x] Unable to work [] Unable to attend scientology [] Unable to walk/stand [] Unable to read [] Unable to drive [] Unable to eat/drink [] Unable to sleep [] Unable to be with family [] Patient intubated [] Other: Summary retirede had a stress test wal[place]abella for doctors report so he can go home feels good has a good attitude +1 Time spent with patient 10 mins
[2021-09-10] MEDS: pantoprazole DR 40 mg Tablet PO (14:18)
--- NOTE | 2021-09-10 15:36 | P.PN_ITS ---
Subjective Subjective: Interval history: No acute events overnight. Seen post stress test today. Did have heart rate going up to 120s early in the morning today controlled with IV Cardizem. Overnight heart rate has remained stable. Denies any nausea vomiting, headache. Complaining of mild difficulty in breathing but states he thinks he has at baseline. Vitals/I&O/Wt Last Vital Signs Temp 97.6 F 09/10/21 13:38 Pulse 80 09/10/21 14:21 Resp 21 H 09/10/21 13:38 BP 101/63 09/10/21 13:38 Pulse Ox 94 09/10/21 13:38 09/10/21 09/10/21 09/10/21 06:59 14:59 22:59 Intake Total 160 / 400 Output Total 300 / 600 150 / 150 Balance -140 / -200 -150 / -150 Weight last 48 hrs Weight 99.155 kg Weight 99.79 kg Physical Exam Narrative: EXAM NARRATIVE: General: No acute distress, AO x3, hoarse voice, laying comfortably in bed on room air HEENT: PERRLA, pupils bilaterally equal and reactive Chest: Bilateral bronchial breath sounds, occasional rhonchi present all over the lung lora, equal good air entry bilaterally CVS: S1-S2 irregularly irregular, no murmurs, no tachycardia, no gallops, no rubs Abdomen: Soft, nontender, no organomegaly, bowel sounds present Neuro: No focal deficits, no facial deformity, AO x3, power 5/5 in all limbs Data : 09/10/21 05:40 09/10/21 05:40 A&P Assessment and plan (1) Congestive heart failure with cardiomyopathy: Status: Acute (2) Atrial fibrillation/flutter: Status: Acute (3) Hypothyroidism: Status: Acute Qualifiers: Hypothyroidism type: postoperative Qualified Code(s): E89.0 - Postprocedural hypothyroidism (4) COPD (chronic obstructive pulmonary disease): Status: Acute Qualifiers: COPD type: chronic bronchitis Chronic bronchitis type: mucopurulent Qualified Code(s): J41.1 - Mucopurulent chronic bronchitis (5) Chest pressure: Status: Acute Additional A&P Information Atrial fibrillation: Continue with Cardizem 60 mg 4 times daily. Discussed with patient regarding need for anticoagulation for stroke prevention. Switch from Lovenox to Xarelto 20 mg oral daily. Congestive heart failure: New diagnosis. Echocardiogram results appreciated. Consistent with a new EF of 25 to 30% with global LV hypokinesia which is more pronounced in anterior septal and apical region. Could be related secondary to chronic fibrillation with rapid ventricular response but cannot rule out secondary to CAD given localized regional wall motion abnormality. Lasix 20 mg oral daily. Depending on the blood pressure will start him on cardiac medications for heart failure. Strict input output charting. Daily weights. Fluid restriction up to 1500 cc. We will consult cardiology for further recommendations and possible angiogram and LifeVest. COPD: Continue with home dose of inhalers. No exacerbation currently. Full code. Xarelto will DVT prophylaxis. Protonix for PUD prophylaxis. Cardiac diet. Attestations Medical Necessity Statement*: Michaelaramis BartholomewKen is being changed to inpatient status as stay will now exceed 2 midnights. Ongoing hospital care is necessary for further evaluation of new congestive heart failure with EF of 25 to 30% Time Spent in Patient Care: Greater than 35 minutes (>than 50% of time spent in counselling and/or direct pt care on unit) . Coding Level of Care Code Acute Vascular Ultrasound Technician for [facility] Fwd Diagnoses Congestive heart failure with cardiomyopathy I50.9; I42.9 Atrial fibrillation/flutter Hypothyroidism E89.0 Hypothyroidism type: postoperative COPD (chronic obstructive pulmonary disease) J41.1 COPD type: chronic bronchitis Chronic bronchitis type: mucopurulent Chest pressure R07.89
[2021-09-10] MEDS: FUROsemide 20 mg Tablet PO (16:02)
--- NOTE | 2021-09-10 16:41 | PC.NURSE ---
Transfer Note Patient transferred to U 112-1 from [facility] via wheel chair. Handoff received from [facility]. Patient oriented to environment and equipment. Covering service notified. Orders reviewed and will continue to monitor. Family and/or hr representative notified.
--- NOTE | 2021-09-10 16:43 | PC.NURSE ---
patient continues to refuse Covid swab Dr gupta notified
--- NOTE | 2021-09-10 17:22 | NMCV_ITS ---
NM ladarius perf SPECT r/s* [id number] Michael Rogers Age: 75 Gender: M : 1945 Exam Date: 09/10/2021 07:00 Ordering Phys: El Rudd MD Technologist: OKSANA eVlasquez Exam Location: [facility] Indications: DIFFICULTY BREATHING, HEART FLUTTER STRESS TEST Please see separate stress test report in [facility] for full findings IMAGE PROTOCOL Rest/Stress 1 Lexiscan Day Radiopharmaceutical Dose (mCi) Administration Site Administered by Rest: Tc-99m 10.9 IV OKSANA Milner Sestamibi Stress:Tc-99m 33.0 IV OKSANA Milner Sestamibi Rest: 10-Sep-2021 60 Discovery 630 Stress: 10-Sep-2021 30 Discovery 630 0.4mg Lexiscan. Supine position only as patient was unable to lay prone. SPECT RESULTS Technical Quality: Excellent Raw Data Analysis: Normal Image Corrections: No attenuation or motion correction applied Summed Stress Score: 8 Summed Rest Score: 8 Summed Difference Score: 1 PERFUSION FINDINGS Large area of fixed perfusion defect surrounded by small area of reversibility noted in distal inferior wall suggestive of old myocardial infarction surrounded by small area of lexx-infarct ischemia. FUNCTIONAL RESULTS (calculated via Gated SPECT) Stress Image LV EF (%): 21 Stress EDV (mL):234 TID: 1.06 Stress ESV (mL):186 Rest Image LV EF (%): 21 FUNCTIONAL FINDINGS: Severely depressed LV function, Inferior wall akineses, global hypokinesis IMPRESSIONS Large area of fixed perfusion defect surrounded by small area of reversibility noted in distal inferior wall suggestive of old myocardial infarction surrounded by small area of lexx-infarct ischemia. EKG portion of the stress test will be documented separtely Mahnaz Guzman MD (Electronically Signed) Final Date: 10 September 2021 15:47 S
--- NOTE | 2021-09-10 18:01 | PM.CONSULT ---
Providers/Reason For Consult Consulting Physician/Specialty*: Dr. Bertrand, cardiology Reason for Consult*: Newly diagnosed CHF, atrial flutter, abnormal stress test Attending Physician: El Rudd MD Primary Care Provider: Laura Harrington MD History of Present Illness History of Present Illness Michael Rogers is a 75 year old male with past medical history of hypothyroidism, COPD, h/o polio affecting left side (primarily upper extremity) presented to the ER with fluttery feeling in chest going on and off for last 2 months increased over last 2 to 3 days. Patient denies any history of CAD, IA, stents, stress testing or stroke. Does give history of atrial fibrillation in his father and son. Patient is a former smoker (quit 5 years back, used to smoke 1 PPD for several years). He is not vaccinated for COVID-19. He gives h/o stents in younger brother (2 years younger). In the ER, patient was found to be having atrial fibrillation and flutter with heart rate going up to 130s at rest saturating 95%.TTE with severely decreased LV function and stress test with old IA in inferior wall with mild lexx-infarct ischemia. At the time of exam, patient complains of SOB on speaking. Denies leg swelling, orthopnea or PND. No UTI like symptoms. Review of Systems General: Reports: 10 or more systems reviewed and unremarkable except in HPI and below Const: Denies: fever(s), chills, body aches, change in appetite, change in weight, change in sleep pattern, daytime sleepiness or snoring Eyes: Denies: change in vision or blurry vision ENMT: Denies: hoarseness Card: Reports: palpitations, dyspnea on exertion and acrocyanosis; Denies: chest pain, irregular heart rhythm, edema, swelling of feet/ankles, lightheadedness, syncope, pre-syncope or orthopnea Resp: Reports: non-productive cough; Denies: dyspnea, productive cough, wheezing, change in phlegm color, hemoptysis or chest congestion GI: Denies: abdominal pain, nausea, vomiting, hematemesis, coffee ground emesis, heartburn, diarrhea, constipation, bloating, GI cramping, change in bowel habits, pain on defecation, hematochezia or melena : Denies: flank pain, difficulty urinating, dysuria, urinary frequency, urinary urgency, urinary hesitancy, urinary dribbling, difficulty starting urination, change in urine stream, nocturia or hematuria Musc: Denies: back pain, extremity pain, joint pain, joint swelling, joint redness or limited range of motion Neuro: Reports: weakness in extremities; Denies: headache(s), numbness in extremities, lack of coordination, frequent falls, dizziness, vertigo, confusion, Slurred speech present or difficulty communicating thoughts Psych: Denies: anxiety, depression or irritability Endo: Denies: tired all the time, cold intolerance, excessive sweating, flushing or heat intolerance Damion/Lymph: Denies: easy bruising or easy bleeding All/Imm: Denies: tongue swelling or acute wheezing Meds/Allergies Home Medications and Allergies Home Medications Medication Instructions Recorded Confirmed Last Taken Type albuterol sulfate 2.5 mg INHALATION QID PRN 09/09/21 09/09/21 Unknown History fluticasone propionate 1 inh INHALATION BID 09/09/21 09/09/21 Unknown History fluticasone propionate 2 spray INTRANASAL DAILY 09/09/21 09/09/21 Unknown History levothyroxine [Synthroid] 125 mcg PO DAILY 09/09/21 09/09/21 09/09/21 History loratadine 10 mg PO DAILY 09/09/21 09/09/21 Unknown History montelukast 10 mg PO DAILY 09/09/21 09/09/21 Unknown History pantoprazole [Protonix] 40 mg PO DAILY 09/09/21 09/09/21 Unknown History roflumilast [Daliresp] 500 mcg PO DAILY 09/09/21 09/09/21 Unknown History tamsulosin 0.8 mg PO DAILY 09/09/21 09/09/21 09/09/21 History tiotropium bromide [Spiriva 2 puff INHALATION DAILY 09/09/21 09/09/21 09/09/21 History Respimat] Allergies Allergy/AdvReac Type Severity Reaction Status Date / Time No Known Allergies Allergy Verified 05/20/21 13:22 Current Medications Current Medications Generic Name Dose Route Start Last Admin Trade Name Freq PRN Reason Stop Dose Admin Benzonatate 100 mg 09/09/21 21:00 09/10/21 13:53 Benzonatate 100 Mg Capsule PO 100 mg TID ANNA Administration Diltiazem HCl 30 mg 09/10/21 11:15 09/10/21 11:10 Diltiazem 30 Mg Tablet PO 30 mg ONCE ANNA Administration Diltiazem HCl 60 mg 09/10/21 14:00 09/10/21 13:53 Diltiazem 60 Mg Tablet PO 60 mg Q6H ANNA Administration Ferrous Gluconate 324 mg 09/09/21 18:00 09/10/21 10:03 Ferrous Gluconate 324 Mg Tablet PO 324 mg BIDWM ANNA Administration Fluticasone Propionate 1 spray 09/10/21 09:00 09/10/21 10:07 Fluticasone Nasal [place] 16gm Btl INTRANASAL 1 spray BID ANNA Administration Furosemide 20 mg 09/10/21 15:35 09/10/21 16:02 Furosemide 20 Mg Tablet PO 20 mg DAILY@0800 ANNA Administration Levothyroxine Sodium 125 mcg 09/10/21 09:00 09/10/21 10:02 Levothyroxine 125 Mcg Tablet PO 125 mcg QD ANNA Administration Loratadine 10 mg 09/10/21 09:00 09/10/21 10:04 Loratadine 10 Mg Tablet PO 10 mg DAILY ANNA Administration Montelukast Sodium 10 mg 09/10/21 09:00 09/10/21 10:02 Montelukast Sodium 10 Mg Tablet PO 10 mg DAILY ANNA Administration Pantoprazole Sodium 40 mg 09/09/21 15:15 09/10/21 14:[address] 40 Mg Tablet PO 40 mg QD ANNA Administration Roflumilast 500 mcg 09/10/21 09:00 09/10/21 10:03 Roflumilast 500 Mcg Tablet PO 500 mcg DAILY ANNA Administration Fluticasone/Salmeterol 1 puff 09/09/21 20:00 09/10/21 08:32 Fluticasone-Salmeterol 250-50 Diskus INHALATION Not Given BID.RESPIRATORY ANNA Tamsulosin HCl 0.8 mg 09/10/21 09:00 09/10/21 10:02 Tamsulosin 0.4 Mg Capsule PO 0.8 mg DAILY ANNA Administration Tiotropium Gregory 18 mcg 09/10/21 08:00 09/10/21 08:32 Tiotropium 18 Mcg Mdi INHALATION Not Given DAILY.RESPIRATORY ANNA PFSH Acute PFSH: Medical History BPH NOS w ur obs/LUTS COPD (chronic obstructive pulmonary disease) Elevated PSA GERD (gastroesophageal reflux disease) Hypothyroidism Seasonal allergies Subcutaneous mass of right forearm Surgical History H/O thyroidectomy S/P hernia repair bilateral inguinal Family History Father , AT AGE 60 ABESTOS No problems noted. Mother , AT IN HER 80'S No problems noted. Social History Smoking and tobacco status: former smoker Quit status (tobacco): has quit using tobacco Year quit tobacco: 2016 Former quit date comment: Hx of 1 PPD x 50 Years Second hand smoke exposure: No Smoking risk assessment/counseling performed?: No Alcohol intake: current Alcohol intake frequency: few times a week Alcohol type: hard liquor Counseling given: No Counseling given: No Lives independently: Yes Household members: spouse Marital status: Current occupational status: retired History of recent travel: No Current gender identity: Male Vitals/I&O/Wt Last Vital Signs Temp 97.6 F 09/10/21 13:38 Pulse 75 09/10/21 16:30 Resp 23 H 09/10/21 16:30 BP 120/71 09/10/21 16:30 Pulse Ox 94 09/10/21 13:38 09/10/21 09/10/21 09/10/21 06:59 14:59 22:59 Intake Total 160 / 400 Output Total 300 / 600 150 / 150 Balance -140 / -200 -150 / -150 Weight last 48 hrs Weight 218 lb 9.6 oz Weight 220 lb Physical Exam Narrative: EXAM NARRATIVE: GENERAL: Averagely built and averagely nourished in no acute distress HEENT: Pupils equal round reactive to light. No pallor or icterus. NECK: No JVD. No carotid bruit. CARDIOVASCULAR SYSTEM: S1-S2 irregular. No murmur rubs or gallops. RESPIRATORY SYSTEM: Chest clear to auscultation. No wheezes rhonchi. Mild tachypnea+. Decreased breath sounds at bases. Prolonged expiration. ABDOMEN: Soft, nontender and nondistended. Normal bowel sounds present. EXTREMITIES: No cyanosis or edema. No signs of chronic venous insufficiency. CLASSROOM INSTRUCTOR: Patient is alert oriented ?3. Left UE weakness, tremors and atrophied interossei on left hand SKIN: Normal turgor and temperature. A&P Assessment and plan (1) Congestive heart failure with cardiomyopathy: Patient reluctant to undergo LHC for newly diagnosed CHF and mildly abnormal stress test. -He wants to think about it and talk to his family. -will need COVID -19 test pre procedure. (declined that on admission) -start on metoprolol and continue cardizem PRN -will add low dose entresto/ARB based on BP tomorrow Status: Acute (2) Atrial flutter: [id number]= 1 for age, 1 for CHF and 1 for presumed CAD -lovenox tonight and start on DOAC tomorrow based on patient's decision. Status: Acute Qualifiers: Atrial flutter type: typical Qualified Code(s): I48.3 - Typical atrial flutter (3) GERD (gastroesophageal reflux disease): Status: Acute Qualifiers: Esophagitis presence: without esophagitis Qualified Code(s): K21.9 - Gastro-esophageal reflux disease without esophagitis (4) COPD (chronic obstructive pulmonary disease): Status: Acute Qualifiers: COPD type: chronic bronchitis Chronic bronchitis type: mucopurulent Qualified Code(s): J41.1 - Mucopurulent chronic bronchitis Additional A&P Information Abnormal stress test Preseumed CAD: start on ASA and low dose statin with plan to uptitrate Hypothyroidism BPH COPD Thank you for allowing me to participate in patient's care. Please feel free to call with questions or concerns Consult Attestations Time Spent in Patient Care: Greater than 35 minutes (>than 50% of time spent in counselling and/or direct pt care on unit). Coding Level of Care Code Acute Toolmaker Helper for Chg Fwd Diagnoses Congestive heart failure with cardiomyopathy I50.9; I42.9 Atrial flutter I48.3 Atrial flutter type: typical GERD (gastroesophageal reflux disease) K21.9 Esophagitis presence: without esophagitis COPD (chronic obstructive pulmonary disease) J41.1 COPD type: chronic bronchitis Chronic bronchitis type: mucopurulent
[2021-09-10] MEDS: atorvastatin 40 mg Tablet 10 MG PO (21:34)
[2021-09-10] MEDS: metoprolol succinate ER (24 HR) 50 mg Tablet PO (21:34)
[2021-09-11] VITALS (89 sets, daily range): BP systolic 82–134; BP diastolic 53–88; PULSE 61–124; RESP 1–98; TEMP 36.4–36.7; O2SAT 82–98
[2021-09-11 03:16] LABS: Alanine Aminotransferase 13 U/L (0-41); Albumin Level 3.8 g/dL (3.5-5.2); Alkaline Phosphatase 61 IU/L (40-130); Anion Gap 18.7 (5-19); Aspartate Amino Transferase 20 U/L (0-40); Blood Urea Nitrogen 14 mg/dL (8-23); Calcium 8.6 mg/dL (8.5-10.5); Carbon Dioxide 23 mmol/L (22-29); Chloride 98 mmol/L (98-107); Globulin 2.5 g/dL (1.3-4.6); Glucose 93 mg/dL (65-115); Osmolality Calculated 282 mOsm/kg (285-295); Potassium 3.7 mmol/L (3.5-5.1); Sodium 136 mmol/L (136-145); Total Bilirubin 0.5 mg/dL (0.15-1.2); Total Protein 6.3 g/dL (6.6-8.7)
[2021-09-11] MEDS: benzonatate 100 mg Capsule PO ×2 (09:26→14:34)
[2021-09-11] MEDS: levothyroxine 125 mcg Tablet PO (09:26)
[2021-09-11] MEDS: montelukast sodium 10 mg Tablet PO (09:26)
[2021-09-11] MEDS: FUROsemide 20 mg Tablet PO (09:27)
[2021-09-11] MEDS: loratadine 10 mg Tablet PO (09:27)
[2021-09-11] MEDS: aspirin 81 mg EC Tablet PO (09:27)
[2021-09-11] MEDS: metoprolol succinate ER (24 HR) 50 mg Tablet PO ×2 (09:27→19:35)
[2021-09-11] MEDS: roflumilast 500 mcg Tablet PO (09:27)
[2021-09-11] MEDS: fluticasone nasal spray 16gm Btl 1 SPRAY INTRANASAL ×2 (09:27→18:47)
[2021-09-11] MEDS: ferrous gluconate 324 mg Tablet PO ×2 (09:27→18:46)
[2021-09-11] MEDS: tamsulosin 0.4 mg Capsule 0.8 MG PO (09:27)
--- NOTE | 2021-09-11 09:30 | XACV_ITS ---
Exam Room: [facility] Ht: 188 cm Wt: 93 kg BSA: 2.21 m2 Gender: Male : 1945 Any Known Allergies: No known allergies Exam Priority: Routine Procedure(s): Procedure Description: Diagnostic procedure Procedure Description: Coronary Angiography Diagnostic Cath Status: Urgent Recommendations * 1-Return to inpatient for close monitoring and routine cath care 2-Risk factor modification for secondary prevention 3-Continue optimal medical management 4-Follow up with Dr. Guzman in four weeks and your primary care in 10 days. Diagnostic RX Recommendation: medical therapy and/or counseling Pressures Phase:Rest AO : 92 / 64 ( 76 ) @ 9:53:00 AM 93 / 66 ( 79 ) @ 10:01:00 AM Clinical Evaluation EBL: 5mL-10mL Procedural Details Procedure Consent Obtained. Pre-Procedure Time Out. Identified patient by full name and date of as verbalized by the patient/guarantor. Does the consent match the physician's order: Yes. Accurate & Complete Informed Consent: Yes. Inpatient/Outpatient History & Physical on Chart: Yes. If H&P is completed, is and addenduem needed: No; If yes, is the addendum complete: N/A. Visualize and Verify Site with Patient/Guarantor: N/A. Relevant Radiology Images available: N/A. Pre-op teaching completed and patient verbalized understanding. The risks, benefits, and alternatives of sedation and/or procedure were discussed by physician. The patient agrees to continue. Procedure started. [facility] Clinical Fraility Score: 4: Vulnerable. Quoter Indications: LV Dysfunction, abnormal stress test, new onset heart failure. Chest Pain Symptom Assessment: Typical Angina Symptoms. Cardiovascular Instability: No. Correct patient, site and procedure confirmed by cath team. PERRLA. 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 Lungs clear x 5 lobes. IV Site on Arrival: 18 gauge in the left wrist. IV Fluids: 0.9% NaCl at KVO. 0 mL infused prior to laborer high density press. Oxygen started at 2liters/min via nasal canula. bilateral groins was prepped with chloroprep then draped in the usual sterile fashion. Baseline sample Acquired. HR: 100 BPM. Equipment: 6F - Femoral. Cardiac Cath Pack. ACIST Manifold Kit Model BT 2000. Heparinized Saline (2 units/mL), 1000 mL bag. Kit, Micropuncture. Casandra Wilson RN will be circulating nurse for this procedure. Physician arrived. Physician scrubbed in. Immediate Pre-Procedure Time Out. Correct Patient: Yes; Correct Procedure: Yes; Correct Site: Yes; Correct Patient Position: Yes; Correct Supplies: Yes; Dried Flammable Prep: Yes; Blood Products Available: N/A;. Lidocaine 1% infiltrated to the right groin. Arterial access obtained with micropuncture set. A 5 azerbaijani JL4 catheter in over wire. Wire out. Hand injection performed at lower abdominal area. Inventory is TR Glidewire Angled Stiff Shaft .035 260cm. Glidewire inserted. Wire out. Hand injection performed at lower abdominal area. Hand injection performed at lower abdominal area. Unable to advance JL catheter and wire. Catheter out. A 5 azerbaijani JR4 catheter in over wire. Wire out. Multiple views taken of right coronary artery. Catheter removed over the exchange wire. A 5 azerbaijani JL4 catheter in over wire. Catheter removed over the exchange wire. A Right femoral angiogram was performed to determine safe placement of closure device. A Perclose (JoopLoop) was successful obtaining hemostatsis at the Right Femoral artery insertion site. Perclose placed without complications. No signs or symptoms of hematoma noted. Sterile dressing applied per usual sterile fashion. Post Procedure: Pulses reassessed and unchanged. PERRLA. 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 No VTE prophylaxis required. Medication's Wasted: Heparin = 1000 units. Total IV fluids: 72 mL. Contrast type used: Visipaque 320 mgI/mL, 500 mL bottle. Complications: none. Physician scrubbed out. Post-op diagnosis: normal coronaries. Estimated blood loss: 5mL-10mL. Responsiveness - Normal response to verbal stimuli; alert and oriented, PERRLA. Airway - Unaffected, no intervention required; spontaneous ventilation. Circulation: W/N/L, pulses unchanged. Nausea/Vomiting: No. Procedure completed. Patient transferred by bed to 1st floor. Vital chart was stopped. Access Site Site: Right Femoral artery Sheath Size: 6 Fr Hemostasis Method: Perclose (JoopLoop) Hemostasis Success: Successful Procedure Medications Start: 11:24 AM Stop: 11:24 AM Medication: Versed Amount: 1 mg Route: I.V. Start: 11:24 AM Stop: 11:24 AM Medication: Fentanyl Amount: 50 mcg Route: I.V. Start: 11:40 AM Stop: 11:40 AM Medication: Versed Amount: 1 mg Route: I.V. Start: 12:12 PM Stop: 12:12 PM Medication: Fentanyl Amount: 50 mcg Route: I.V. I, the attending physician, have reviewed and verified all procedure medications. Yes, all medications given per verbal order History/Risk Factors Hypertension: No Dyslipidemia: No Peripheral Arterial Disease (PAD): No Myocardial Infarction (AL): No Obesity: No Renal Disease: No Tobacco Use: Former Prior Interventions PCI: No CABG: No Valve Surgery: No Report Signatures Finalized by Mahnaz Guzman MD on 09/15/2021 08:22 PM
[2021-09-11 10:48] LABS: SARS Covid-2 Antigen Negative (Negative)
[2021-09-11] MEDS: sodium chloride 0.9% 1,000 ML 50 ML IV (10:50)
--- NOTE | 2021-09-11 11:15 | PC.NURSE ---
Pt left for filling station laborer at approximately 1108.
--- NOTE | 2021-09-11 11:24 | W.PM.OPSUD ---
Surgery/Procedure H&P Update DATE OF PROCEDURE: September 11, 2021 DATE H&P PERFORMED: 09/10/21 H&P UPDATE INFORMATION: I have reviewed H&P completed within last 30 days, I have examined patient prior to procedure and No changes to prior documentation PREOP DIAGNOSIS: New onset of heart failure, abnormal stress test, LV dysfunction PATIENT REASSESSED PRIOR TO SEDATION, WITH NO CHANGE NOTED: Yes PHYSICAL EXAM: alert, oriented x 3 and clear to auscultation bilaterally AIRWAY EVAL/ANESTHESIA PLAN: ASA II and Risks, benefits & alternatives of sedation and/or procedure discussed ADDITIONAL INFORMATION: Patient has been explained in detail risk benefit and alternative for the procedure, patient understand risk for stroke contrast-induced nephropathy vascular injury urgent emergent bypass surgery transfusion hematoma pseudoaneurysm he would like to proceed with it, he is a candidate for DAPT
--- NOTE | 2021-09-11 12:38 | P.PN_ITS ---
Subjective Subjective: Interval history: He was seen both before and after cardiac catheterization. Medications: Reviewed: Yes Vitals/I&O/Wt Last Vital Signs Temp 97.5 F L 09/11/21 08:00 Pulse 90 09/11/21 08:00 Resp 28 H 09/11/21 08:00 BP 121/84 09/11/21 08:00 Pulse Ox 94 09/11/21 08:00 09/10/21 09/11/21 09/11/21 22:59 06:59 14:59 Intake Total 300 / 300 Output Total 200 / 350 975 / 1325 550 / 550 Balance -200 / -350 -675 / -1025 -550 / -550 Weight last 48 hrs Weight 205 lb 14.4 oz Weight 218 lb 9.6 oz Physical Exam Narrative: EXAM NARRATIVE: GENERAL: Averagely built and averagely nourished in no acute distress HEENT: Pupils equal round reactive to light. No pallor or icterus. NECK: No JVD. No carotid bruit. CARDIOVASCULAR SYSTEM: S1-S2 irregular. No murmur rubs or gallops. RESPIRATORY SYSTEM: Chest clear to auscultation. No wheezes rhonchi. Decreased breath sounds at bases. Prolonged expiration. ABDOMEN: Soft, nontender and nondistended. Normal bowel sounds present. EXTREMITIES: No cyanosis or edema. No signs of chronic venous insufficiency. ASSISTANT SALES DIRECTOR: Patient is alert oriented ?3. Left UE weakness, tremors and atrophied interossei on left hand Data : 09/10/21 05:40 09/11/21 02:24 A&P Assessment and plan (1) Congestive heart failure with cardiomyopathy: I had offered patient the option of undergoing cardiac catheterization given newly diagnosed cardiomyopathy and mildly abnormal stress test versus medical management to see his response to medication and decision for cardiac catheterization based on that. After discussion with his and his sister Valentina, patient decided to proceed with coronary angiogram. -Coronary angiogram was done via right femoral approach. Patient was found to have small abdominal aortic aneurysm. Normal coronaries on cardiac catheterization. Left dominant circulation. -Nonischemic cardiomyopathy ( tachycardia induced) -started on metoprolol and continue cardizem PRN -will add low dose entresto/ARB based on BP reading today/tomorrow. -We will need to discuss LifeVest with the patient prior to discharge. May not be a good candidate with his left upper extremity weakness. Status: Acute (2) Atrial flutter: Persistent atrial fibrillation ; unclear time of onset [id number]/9; 1 for age, 1 for CHF -start on DOAC later today. Status: Acute Qualifiers: Atrial flutter type: typical Qualified Code(s): I48.3 - Typical atrial flutter (3) GERD (gastroesophageal reflux disease): Status: Acute Qualifiers: Esophagitis presence: without esophagitis Qualified Code(s): K21.9 - Gastro-esophageal reflux disease without esophagitis (4) COPD (chronic obstructive pulmonary disease): Status: Acute Qualifiers: COPD type: chronic bronchitis Chronic bronchitis type: mucopurulent Qualified Code(s): J41.1 - Mucopurulent chronic bronchitis Additional A&P Information Abdominal aortic aneurysm: Plan for abdominal ultrasound prior to discharge Abnormal stress test: False positive; normal coronaries on cardiac cath Hypothyroidism BPH COPD History of polio with left upper extremity weakness Thank you for allowing me to participate in patient's care. Please feel free to call with questions or concerns Attestations Medical Necessity Statement*: Patient needs hospital stay for management of ne wly diagnosed congestive heart failure and atrial flutter with RVR Time Spent in Patient Care: 16 - 35 minutes (>than 50% of time spent in counselling and/or direct pt care on unit) . Coding Level of Care Code Acute Full Stack Software Engineer for Chg Fwd Diagnoses Congestive heart failure with cardiomyopathy I50.9; I42.9 Atrial flutter I48.3 Atrial flutter type: typical GERD (gastroesophageal reflux disease) K21.9 Esophagitis presence: without esophagitis COPD (chronic obstructive pulmonary disease) J41.1 COPD type: chronic bronchitis Chronic bronchitis type: mucopurulent
--- NOTE | 2021-09-11 12:42 | PM.PROC ---
Procedure Note: Date of procedure: 09/11/21 Pre-procedure diagnosis: Left heart cath: Indication new onset of heart failure/cardiomyopathy Other Information: Left heart catheter performed which did not show any blockage in the coronary bed. Left main, LAD, LCx and RCA does not have any significant stenosis. Most likely it is a nonischemic cardiomyopathy. Coding Level of Care Code Acute Referral Manager for Dale Lloyd
--- NOTE | 2021-09-11 12:57 | USCV_ITS ---
Michael Rogers Age: 75 Gender: M : 1945 Exam Date: 09/11/2021 15:02 Ordering Phys: Chery Bertrand MD ([email or web address]) Technologist: KERLINE Exam Location: [facility] [place] Indication: AORTIC ANEURYSM HISTORY: Diameter (cm) AP x Transverse x Length Velocity (cm/s) Waveform Prox Aorta: 2.40 x 2.43 x 43.80 Mid Aorta: 2.27 x 2.39 x 46.10 Distal Aorta: 1.99 x 1.86 x 71.00 Right Iliac Prox: 0.81 x 1.09 x 80.45 Left Iliac Prox: 0.95 x 1.15 x 65.10 Stent Prox Landing x x Aneurysmal Sac Max x x Lt Lat Sac Dim Rt Lat Sac Dim Stent Dist Landing x x Right Iliac Stent x x Left Iliac Stent x x Right Renal Art Left Renal Art FINDINGS: Comparison: none available. Ectatic abdominal aorta with evidence of atherosclerotic plaque noted. There is evidence of atherosclerotic plaque no significan stenosis in the right common iliac artery. There is evidence of atherosclerotic plaque no significan stenosis in the left common iliac artery. CONCLUSIONS No evidence of abdominal aortic or bilateral iliac aneurysm. Dr. Neha Rojas DO (Electronically Signed) Final Date: 11 September 2021 16:03 S
--- NOTE | 2021-09-11 13:00 | PC.NURSE ---
Pt returned to room 112-1 from slab lifting engineer at approximately 1245. Pts groin site drsg dry and intact. No swelling, hematoma, or bleeding noted. Pts distal pulses palpable. Pt had no c/o pain or discomfort at the present time. Pt teaching was done on the importance of lying flat and keeping leg flat. Pt verbalized understanding. Call light in reach. Will cont to monitor.
--- NOTE | 2021-09-11 14:06 | P.PN_ITS ---
Subjective Subjective: Interval history: No events overnight. Seen post cardiac catheterization today. Family at bedside. Denies any nausea vomiting, headache, chest pain, dizziness or palpitations. Medications: Reviewed: Yes Vitals/I&O/Wt Last Vital Signs Temp 97.5 F L 09/11/21 08:00 Pulse 85 09/11/21 13:00 Resp 18 09/11/21 13:00 BP 115/75 09/11/21 13:00 Pulse Ox 86 L 09/11/21 13:00 09/10/21 09/11/21 09/11/21 22:59 06:59 14:59 Intake Total 300 / 300 Output Total 200 / 350 975 / 1325 550 / 550 Balance -200 / -350 -675 / -1025 -550 / -550 Weight last 48 hrs Weight 93.395 kg Weight 99.155 kg Physical Exam Narrative: EXAM NARRATIVE: General: No acute distress, AO x3, hoarse voice, laying comfortably in bed on room air HEENT: PERRLA, pupils bilaterally equal and reactive Chest: Bilateral bronchial breath sounds, occasional rhonchi present all over the lung lora, equal good air entry bilaterally CVS: S1-S2 irregularly irregular, no murmurs, no tachycardia, no gallops, no rubs Abdomen: Soft, nontender, no organomegaly, bowel sounds present Neuro: No focal deficits, no facial deformity, AO x3, power 5/5 in all limbs Data : 09/10/21 05:40 09/11/21 02:24 A&P Assessment and plan (1) Congestive heart failure with cardiomyopathy: Status: Acute (2) Atrial fibrillation/flutter: Status: Acute (3) Hypothyroidism: Status: Acute Qualifiers: Hypothyroidism type: postoperative Qualified Code(s): E89.0 - Postprocedural hypothyroidism (4) COPD (chronic obstructive pulmonary disease): Status: Acute Qualifiers: COPD type: chronic bronchitis Chronic bronchitis type: mucopurulent Qualified Code(s): J41.1 - Mucopurulent chronic bronchitis (5) Chest pressure: Status: Acute (6) Nonischemic cardiomyopathy: Status: Acute Additional A&P Information Atrial fibrillation: Given concerns of low EF change to metoprolol succinate. Continue with 50 twice daily. Cardizem 30 mg every 6 hourly as needed. Xarelto 20 mg oral daily for anticoagulation of Maximino vas score of 2 for age and heart failure Congestive heart failure: Post cardiac catheterization. Nonischemic cardiomyopathy. Echocardiogram results appreciated. Consistent with a new EF of 25 to 30% with global LV hypokinesia which is more pronounced in anterior septal and apical region. Continue with oral Lasix 20 mg daily. Continue with metoprolol as above. Start patient on low-dose ARB for 25 mg daily. Will uptitrate if blood pressures tolerable. Strict input output charting. Daily weights. Fluid restriction up to 1500 cc. Appreciate cardiology recommendations. Will have to confirm regarding LifeVest. COPD: Continue with home dose of inhalers. No exacerbation currently. Full code. Xarelto will DVT prophylaxis. Protonix for PUD prophylaxis. Cardiac diet. Attestations Medical Necessity Statement*: Requires further hospitalization for management of nonischemic cardiomyopathy, congestive heart failure with new EF of 25%, atrial fibrillation Time Spent in Patient Care: Greater than 35 minutes (>than 50% of time spent in counselling and/or direct pt care on unit) . 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
[2021-09-11] MEDS: losartan 50 mg Tablet 25 MG PO (14:33)
[2021-09-11] MEDS: pantoprazole DR 40 mg Tablet PO (14:33)
[2021-09-11] MEDS: rivaroxaban 10 mg Tablet 20 MG PO (18:47)
[2021-09-11] MEDS: atorvastatin 40 mg Tablet 10 MG PO (19:35)
--- NOTE | 2021-09-11 22:49 | PC.NURSE ---
Right groin site and dressing WNL. Distal pulses and skin WNL. Will continue to monitor.
[2021-09-12] VITALS (12 sets, daily range): BP systolic 97–116; BP diastolic 63–85; PULSE 67–112; RESP 15–24; TEMP 36.8; O2SAT 92–97
[2021-09-12 08:47] LABS: Basophils # 0.1 10^3/uL (0.0-0.1); Basophils % 0.7 %; Eosinophils # 0.2 10^3/uL (0.0-0.8); Eosinophils % 2.2 %; Hematocrit 47.4 % (42.0-52.0); Hemoglobin 15.7 g/dL (11.7-16.6); Lymphocytes % 14.3 %; Mean Corpuscular HGB Conc 33.1 g/dL (30.0-36.0); Mean Corpuscular Hemoglobin 30.7 pg (28.0-34.0); Mean Corpuscular Volume 92.8 fl (80-94); Mean Platelet Volume 9.2 fL (7.4-10.4); Monocytes # 0.7 10^3/uL (0.2-0.9); Monocytes % 9.6 %; Neutrophils # 5.24 10^3/uL (1.8-7.7); Neutrophils % 72.9 %; Nucleated Red Blood Cells % 0 %; Platelet Count 215 10^3/cmm (130-400); Red Blood Count 5.11 10^6/uL (4.1-5.3); Red Cell Distribution Width 13.7 % (12.1-15.1); White Blood Count 7.2 10^3/uL (4.0-10.0)
[2021-09-12 09:08] LABS: Alanine Aminotransferase 17 U/L (0-41); Albumin Level 3.9 g/dL (3.5-5.2); Alkaline Phosphatase 70 IU/L (40-130); Anion Gap 18.9 (5-19); Aspartate Amino Transferase 28 U/L (0-40); Blood Urea Nitrogen 17 mg/dL (8-23); Calcium 8.2 mg/dL (8.5-10.5); Carbon Dioxide 25 mmol/L (22-29); Chloride 96 mmol/L (98-107); Globulin 2.9 g/dL (1.3-4.6); Glucose 106 mg/dL (65-115); Osmolality Calculated 284 mOsm/kg (285-295); Potassium 3.9 mmol/L (3.5-5.1); Sodium 136 mmol/L (136-145); Total Bilirubin 0.6 mg/dL (0.15-1.2); Total Protein 6.8 g/dL (6.6-8.7)
--- NOTE | 2021-09-12 09:10 | PM.PN ---
Subjective Subjective: Interval history: No complaints. Doing well Medications: Reviewed: Yes Vitals/I&O/Wt Last Vital Signs Temp 98.3 F 09/12/21 03:26 Pulse 79 09/12/21 03:54 Resp 24 H 09/12/21 03:26 BP 97/63 09/12/21 03:26 Pulse Ox 97 09/12/21 03:26 09/11/21 09/12/21 09/12/21 22:59 06:59 14:59 Output Total 200 / 750 Balance -200 / -750 Weight last 48 hrs Weight 200 lb 8 oz Weight 205 lb 14.4 oz Physical Exam Narrative: EXAM NARRATIVE: GENERAL: Averagely built and averagely nourished in no acute distress HEENT: Pupils equal round reactive to light. No pallor or icterus. NECK: No JVD. No carotid bruit. CARDIOVASCULAR SYSTEM: S1-S2 irregular. No murmur rubs or gallops. RESPIRATORY SYSTEM: Chest clear to auscultation. No wheezes rhonchi. Decreased breath sounds at bases. Prolonged expiration. ABDOMEN: Soft, nontender and nondistended. Normal bowel sounds present. EXTREMITIES: No cyanosis or edema. No signs of chronic venous insufficiency. Right femoral access site with no significant bruising or hematoma LONG CHAIN QUILLER TENDER: Patient is alert oriented ?3. Right UE weakness, tremors and atrophied interossei on left hand Data : 09/12/21 08:10 09/12/21 08:10 A&P Assessment and plan (1) Congestive heart failure with cardiomyopathy: I had offered patient the option of undergoing cardiac catheterization given newly diagnosed cardiomyopathy and mildly abnormal stress test versus medical management to see his response to medication and decision for cardiac catheterization based on that. After discussion with his and his sister Valentina, patient decided to proceed with coronary angiogram. -Coronary angiogram was done via right femoral approach yesterday. Patient was found to have small abdominal aortic aneurysm. Normal coronaries on cardiac catheterization. Left dominant circulation. -Dilated/ Nonischemic cardiomyopathy ( tachycardia induced), NYHA class III -continue metoprolol and losartan. -I discussed LifeVest with the patient and need to use it for at least 3 months. Patient is agreeable with the plan. Will need to assess if he is able to do so while fitting. -May be dischareged later today. -f/u in [facility] in 1 week with our ANIMAL CONTROL LICENSING WORKER and with me in 1 month. Status: Acute (2) Atrial flutter: Persistent atrial fibrillation ; unclear time of onset [id number]=5/9; 1 for age, 1 for CHF -continue Xarelto. will need Coupon on discharge Status: Acute Qualifiers: Atrial flutter type: typical Qualified Code(s): I48.3 - Typical atrial flutter (3) GERD (gastroesophageal reflux disease): Status: Acute Qualifiers: Esophagitis presence: without esophagitis Qualified Code(s): K21.9 - Gastro-esophageal reflux disease without esophagitis (4) COPD (chronic obstructive pulmonary disease): Status: Acute Qualifiers: COPD type: chronic bronchitis Chronic bronchitis type: mucopurulent Qualified Code(s): J41.1 - Mucopurulent chronic bronchitis Additional A&P Information Abdominal aortic aneurysm: Plan for abdominal ultrasound prior to discharge Abnormal stress test: False positive; normal coronaries on cardiac cath Hypothyroidism BPH COPD History of polio with left upper extremity weakness Thank you for allowing me to participate in patient's care. Please feel free to call with questions or concerns Attestations Medical Necessity Statement*: stable to be discharged later today Coding Level of Care Code Acute Outsoles Channel Opener for [facility] Diagnoses Congestive heart failure with cardiomyopathy I50.9; I42.9 Atrial flutter I48.3 Atrial flutter type: typical GERD (gastroesophageal reflux disease) K21.9 Esophagitis presence: without esophagitis COPD (chronic obstructive pulmonary disease) J41.1 COPD type: chronic bronchitis Chronic bronchitis type: mucopurulent
[2021-09-12] MEDS: tamsulosin 0.4 mg Capsule 0.8 MG PO (09:41)
[2021-09-12] MEDS: ferrous gluconate 324 mg Tablet PO (09:41)
[2021-09-12] MEDS: montelukast sodium 10 mg Tablet PO (09:41)
[2021-09-12] MEDS: levothyroxine 125 mcg Tablet PO (09:42)
[2021-09-12] MEDS: benzonatate 100 mg Capsule PO (09:42)
[2021-09-12] MEDS: FUROsemide 20 mg Tablet PO (09:42)
[2021-09-12] MEDS: rivaroxaban 10 mg Tablet 20 MG PO (09:42)
[2021-09-12] MEDS: losartan 50 mg Tablet 25 MG PO (09:42)
[2021-09-12] MEDS: roflumilast 500 mcg Tablet PO (09:42)
[2021-09-12] MEDS: loratadine 10 mg Tablet PO (09:42)
[2021-09-12] MEDS: fluticasone nasal spray 16gm Btl 1 SPRAY INTRANASAL (09:43)
[2021-09-12] MEDS: metoprolol succinate ER (24 HR) 50 mg Tablet PO (09:43)
--- NOTE | 2021-09-12 12:12 | P.DS_ITS ---
Discharge Providers Date of Admission: 09/10/21 16:49 Date of Discharge: September 12, 2021 Attending Provider at Admission: El Rudd MD Attending Provider at Discharge: El Rudd MD Consults: Cardiology: Dr. Bertrand/Dr. Guzman Primary Care Provider: Laura Harrington MD Diagnoses at Discharge Discharge Diagnosis (1) Congestive heart failure with cardiomyopathy: Status: Acute Permanent problem details: Systolic (2) Atrial flutter: Status: Acute Qualifiers: Atrial flutter type: typical Qualified Code(s): I48.3 - Typical atrial flutter (3) GERD (gastroesophageal reflux disease): Status: Acute Qualifiers: Esophagitis presence: without esophagitis Qualified Code(s): K21.9 - Gastro-esophageal reflux disease without esophagitis (4) COPD (chronic obstructive pulmonary disease): Status: Acute Qualifiers: COPD type: chronic bronchitis Chronic bronchitis type: mucopurulent Qualified Code(s): J41.1 - Mucopurulent chronic bronchitis Reason for Visit Reason for Visit: DIFF BREATHING; HEART FLUTTER Hospital Course Hospital Course Michael Rogers is a 75 year old male with past medical history of hypothyroidism, COPD, h/o polio affecting left side (primarily upper extremity) presented to the ER with fluttery feeling in chest going on and off for last 2 months increased over last 2 to 3 days. Patient denies any history of CAD, ID, stents, stress testing or stroke. Does give history of atrial fibrillation in his father and son. Patient is a former smoker (quit 5 years back, used to smoke 1 PPD for several years). He is not vaccinated for COVID-19. He gives h/o stents in younger brother (2 years younger). In the ER, patient was found to be having atrial fibrillation and flutter with heart rate going up to 130s at rest saturating 95%.TTE with severely decreased LV function and stress test with old ID in inferior wall with mild lexx-infarct ischemia. Patient was started on treatment with oral Cardizem for atrial fibrillation and flutter which were later transitioned to oral metoprolol given low EF. He was started on ARB with losartan for heart failure medication. Patient underwent cardiac catheterization on 09/11 which showed nonobstructive CAD. Patient is found to have nonischemic cardiomyopathy with EF 25 to 30%. During hospitalization patient remained hemodynamically stable. Patient is advised to take LifeVest for further monitoring and primary prevention for life-threatening arrhythmia. Patient verbalized understanding and is agreeable to the same. Patient will follow up as an outpatient on Tuesday for LifeVest fitting. Patient has been started on Xarelto for anticoagulation given atrial fibrillation. He is been discharged in hemodynamically stable condition on heart failure and atrial fibrillation medication with advised to follow-up with cardiology within next 1 week. Physical Exam Narrative: EXAM NARRATIVE: General: No acute distress, AO x3, hoarse voice, laying comfortably in bed on room air HEENT: PERRLA, pupils bilaterally equal and reactive Chest: Bilateral bronchial breath sounds, occasional rhonchi present all over the lung olra, equal good air entry bilaterally CVS: S1-S2 irregularly irregular, no murmurs, no tachycardia, no gallops, no rubs Abdomen: Soft, nontender, no organomegaly, bowel sounds present Neuro: No focal deficits, no facial deformity, AO x3, power 5/5 in all limbs Discharge Data Data Completed and Pending: Completed Studies During Hospitalization Category Date Time Status CT angio chest PE protcl [id number] Urge nt Cat Scan 09/09/21 12:46 Completed Sestamibi Stress Test Request Routi ne Exams 09/09/21 17:22 Draft XR chest 1V katie ble [id number] Stat Exams 09/09/21 10:01 Completed NM ladarius perf SPECT r/s* [id number] Routin e Nuc Med 09/10/21 17:22 Completed CV duplex aorta 9 [id number] Routine Ultrasound 09/11/21 12:57 [place] [id number] Urgent Ultrasound 09/09/21 15:14 Completed CV. echo complete * [id number] Routine Ultrasound 09/10/21 05:00 Completed Pending at discharge Category Date Time Status SCHOOL SPEECH THERAPIST request for service Routin e Exams 09/11/21 09:30 Taken Labs from last 24 hours 09/12/21 09/12/21 08:10 08:10 WBC 7.2 RBC 5.11 Hgb 15.7 Hct 47.4 MCV 92.8 MCH 30.7 MCHC 33.1 RDW 13.7 Plt Count 215 MPV 9.2 Neut % (Auto) 72.9 Lymph % (Auto) 14.3 Newton % (Auto) 9.6 Eos % (Auto) 2.2 Baso % (Auto) 0.7 Neut # (Auto) 5.24 Lymph # (Auto) 1.0 Newton # (Auto) 0.7 Eos # (Auto) 0.2 Baso # (Auto) 0.1 Nucleated RBC % (a uto) 0 Nucleated RBCs # 0.0 Sodium 136 Potassium 3.9 Chloride 96 L Carbon Dioxide 25 Anion Gap 18.9 BUN 17 Creatinine 1.0 GFR Calculation Not Reportable Glucose 106 Calculated Osmolal ity 284 L Calcium 8.2 L Total Bilirubin 0.6 AST 28 ALT 17 Alkaline Phosphata se 70 Total Protein 6.8 Albumin 3.9 Globulin 2.9 Addt'l Data from Hospital Stay: Laboratory Results WBC 7.2 10^3/uL (4.0- 10.0) 09/12/21 08:10 RBC 5.11 10^6/uL (4.1 -5.3) 09/12/21 08:10 Hgb 15.7 g/dL (11.7-1 6.6) 09/12/21 08:10 Hct 47.4 % (42.0-52.0 ) 09/12/21 08:10 MCV 92.8 fl (80-94) 09/12/21 08:10 MCH 30.7 pg (28.0-34. 0) 09/12/21 08:10 MCHC 33.1 g/dL (30.0-3 6.0) 09/12/21 08:10 RDW 13.7 % (12.1-15.1 ) 09/12/21 08:10 Plt Count 215 10^3/cmm (130 -400) 09/12/21 08:10 MPV 9.2 fL (7.4-10.4) 09/12/21 08:10 Neut % (Auto) 72.9 % 09/12/21 08:10 Lymph % (Auto) 14.3 % 09/12/21 08:10 Newton % (Auto) 9.6 % 09/12/21 08:10 Eos % (Auto) 2.2 % 09/12/21 08:10 Baso % (Auto) 0.7 % 09/12/21 08:10 Neut # (Auto) 5.24 10^3/uL (1.8 -7.7) 09/12/21 08:10 Lymph # (Auto) 1.0 10^3/uL (0.8- 4.8) 09/12/21 08:10 Newton # (Auto) 0.7 10^3/uL (0.2- 0.9) 09/12/21 08:10 Eos # (Auto) 0.2 10^3/uL (0.0- 0.8) 09/12/21 08:10 Baso # (Auto) 0.1 10^3/uL (0.0- 0.1) 09/12/21 08:10 Nucleated RBC % (a uto) 0 % 09/12/21 08:10 Nucleated RBCs # 0.0 /100WBC 09/12/21 08:10 D-Dimer 1.67 ug/mIFEU (0- 0.59) H 09/09/21 10:27 Sodium 136 mmol/L (136-1 45) 09/12/21 08:10 Potassium 3.9 mmol/L (3.5-5 .1) 09/12/21 08:10 Chloride 96 mmol/L (98-107 ) L 09/12/21 08:10 Carbon Dioxide 25 mmol/L (22-29) 09/12/21 08:10 Anion Gap 18.9 (5-19) 09/12/21 08:10 BUN 17 mg/dL (8-23) 09/12/21 08:10 Creatinine 1.0 mg/dL (0.7-1. 2) 09/12/21 08:10 GFR Calculation Not Reportable 09/12/21 08:10 Glucose 106 mg/dL (65-115 ) 09/12/21 08:10 Estimat Average Gl ucose 108 09/10/21 05:40 Hemoglobin A1c 5.4 % (4.0-6.0) 09/10/21 05:40 Calculated Osmolal ity 284 mOsm/kg (285- 295) L 09/12/21 08:10 Calcium 8.2 mg/dL (8.5-10 .5) L 09/12/21 08:10 Phosphorus 3.1 mg/dL (2.5-4. 5) 09/10/21 05:40 Magnesium 1.7 mg/dL (1.7-2. 3) 09/10/21 05:40 Iron 69 ug/dL (59-158) 09/09/21 10:27 TIBC 324 mcg/dl 09/09/21 10:27 % Saturation 21.2 % (20-50) 09/09/21 10:27 Unsat Iron Binding 255 ug/dL (112-34 7) 09/09/21 10:27 Total Bilirubin 0.6 mg/dL (0.15-1 .2) 09/12/21 08:10 AST 28 U/L (0-40) 09/12/21 08:10 ALT 17 U/L (0-41) 09/12/21 08:10 Alkaline Phosphata se 70 IU/L (40-130) 09/12/21 08:10 Troponin T Baselin e 37 ng/L (0-15) H 09/09/21 10:27 Troponin T 120 Min aura 36.96 ng/L (0-15) H 09/09/21 13:30 Delta Troponin T -0.04 ABS# (0-10) L 09/09/21 13:30 Troponin T Hi Sens 6Hr 39.23 ng/L (0-15) H 09/09/21 16:33 Troponin T Hi Sens 6Hr Delta 2.23 ng/L (0-12) 09/09/21 16:33 NT-Pro-B Natriuret Pep 2155 pg/mL (0-125 ) H 09/09/21 10:27 Total Protein 6.8 g/dL (6.6-8.7 ) 09/12/21 08:10 Albumin 3.9 g/dL (3.5-5.2 ) 09/12/21 08:10 Globulin 2.9 g/dL (1.3-4.6 ) 09/12/21 08:10 Triglycerides 85 mg/dL (0-150) 09/10/21 05:40 Cholesterol 193 mg/dL (0-200) 09/10/21 05:40 LDL Cholesterol, C alc 114 mg/dL (50-129 ) 09/10/21 05:40 Total VLDL Cholest arianne 17 mg/dL (0-30) 09/10/21 05:40 HDL Cholesterol 62 mg/dL (60-100) 09/10/21 05:40 Cholesterol/HDL Ra john 3.11 mg/dL (1.0-5 .00) 09/10/21 05:40 TSH 6.69 uIU/mL (0.27 -4.20) H 09/09/21 10: Free T4 1.46 ng/dL (0.82- 1.77) 09/09/21 10: Free T3 2.5 PG/ML (2.0-4. 4) 09/09/21 10:27 Urine Color Straw (Yellow) 09/09/21 15: Urine Appearance Clear (CLEAR) 09/09/21 15: Urine pH 6 (5-7) 09/09/21 15: Ur Specific Gravit y 1.010 (1.005-1.0 30) 09/09/21 15: Urine Protein Neg (Negative) 09/09/21 15: Urine Glucose (UA) Norm (Normal) 09/09/21 15: Urine Ketones Negative (Negati ve) 09/09/21 15: Urine Blood Neg (Negative) 09/09/21 15: Urine Nitrate Negative (Negati ve) 09/09/21 15: Urine Bilirubin Neg (Negative) 09/09/21 15: Urine Urobilinogen Norm mg/dL (Negat etienne) 09/09/21 15:29 Ur Leukocyte Monique ase Negative (Negati ve) 09/09/21 15: Urine Opiates Scre en Negative ng/mL (N egative) 09/09/21 15:29 Ur Barbiturates Sc reen Negative ng/mL (N egative) 09/09/21 15:29 Ur Phencyclidine S crn Negative ng/mL (N egative) 09/09/21 15:29 Ur Amphetamines Sc reen Negative ng/mL (N egative) 09/09/21 15:29 U Benzodiazepines Scrn Negative ng/mL (N egative) 09/09/21 15: Urine Cocaine Scre en Negative ng/mL (N egative) 09/09/21 15: U Marijuana (THC) Screen Negative ng/mL (N egative) 09/09/21 15: SARS-CoV-2 Ag (Rap id) Negative (Negati ve) 09/11/21 09:55 Impressions Chest X-Ray 09/09/21 10:01 IMPRESSION: No acute chest abnormality. Chest CTA 09/09/21 12:46 IMPRESSION: 1. No evidence of pulmonary embolus. 2. Normal caliber thoracic aorta. 3. Moderate chronic emphysematous changes with subsegmental atelectasis/fibrosis in the lung bases. 4. No acute pulmonary infiltrates. No focal pneumonia or pleural fluid. 5. Small esophageal hiatal hernia. 6. No other significant findings. Echocardiogram: CONCLUSIONS 1. This is a technically difficult study. 2. Normal left ventricular cavity size and wall thickness. Severely decreased left ventricular systolic function. Left ventricular ejection fraction is estimated at 25-30 %. There seems to be global hypokinesis more pronounced in anterior, septal and apical mojica. Normal diastolic function. 3. Mild tricuspid valve regurgitation. 3. Pulmonary artery pressure estimated at 23 mmHg. 4. No prior similar studies to compare. Chery Bertrand MD (Electronically Signed) Final Date: 10 September 2021 15:03 Lexiscan stress test: 09/10/2021: PERFUSION FINDINGS Large area of fixed perfusion defect surrounded by small area of reversibility noted in distal inferior wall suggestive of old myocardial infarction surrounded by small area of lexx-infarct ischemia. FUNCTIONAL RESULTS (calculated via Gated SPECT) Stress Image LV EF (%): 21 Stress EDV (mL):234 TID: 1.06 Stress ESV (mL):186 Rest Image LV EF (%): 21 FUNCTIONAL FINDINGS: Severely depressed LV function, Inferior wall akineses, global hypokinesis IMPRESSIONS Large area of fixed perfusion defect surrounded by small area of reversibility noted in distal inferior wall suggestive of old myocardial infarction surrounded by small area of lexx-infarct ischemia. EKG portion of the stress test will be documented separtely Mahnaz Guzman MD (Electronically Signed) Final Date: 10 September 2021 15:47 Vitals: Last Vital Signs Temp 98.3 F 09/12/21 03:26 Pulse 112 H 09/12/21 09:21 Resp 19 H 09/12/21 09:21 BP 102/73 09/12/21 09:42 Pulse Ox 93 09/12/21 10:30 Discharge Plan Discharge Patient Disposition: Home Condition: Stable Prescriptions: New atorvastatin 40 mg Tablet 10 mg PO BEDTIME 30 Days Qty: 10 RF: 0 pantoprazole 40 mg Tablet,Delayed Release (Dr/Ec) 40 mg PO QD 30 Days Qty: 30 RF: 0 levothyroxine 125 mcg Tablet 125 mcg PO QD 30 Days Qty: 30 RF: 0 ferrous gluconate 324 mg (37.5 mg iron) Tablet 324 mg PO BIDWM Qty: 60 RF: 0 losartan 50 mg Tablet 25 mg PO DAILY 30 Days Qty: 15 RF: 0 metoprolol succinate 50 mg Tablet Extended Release 24 Hr 50 mg PO 0900,2100 Qty: 60 RF: 0 furosemide 20 mg Tablet 20 mg PO DAILY@0800 30 Days Qty: 30 RF: 0 Xarelto 10 mg Tablet 20 mg PO DAILY Qty: 60 RF: 0 Continued tamsulosin 0.4 mg Capsule 0.8 mg PO DAILY RF: 0 Synthroid 125 mcg Tablet 125 mcg PO DAILY RF: 0 Protonix 40 mg Tablet,Delayed Release (Dr/Ec) 40 mg PO DAILY RF: 0 montelukast 10 mg Tablet 10 mg PO DAILY RF: 0 Daliresp 500 mcg Tablet 500 mcg PO DAILY RF: 0 loratadine 10 mg Tablet 10 mg PO DAILY RF: 0 fluticasone propionate 50 mcg/actuation Sherman,Suspension 2 spray INTRANASAL DAILY RF: 0 Spiriva Respimat 1.25 mcg/actuation Mist 2 puff INHALATION DAILY RF: 0 fluticasone propionate 50 mcg/actuation Blister With Device 1 inh INHALATION BID RF: 0 albuterol sulfate 2.5 mg /3 mL (0.083 %) Solution For Nebulization 2.5 mg INHALATION QID PRN (Reason: Shortness Of Breath) RF: 0 Discharge Orders: Discharge Order (Routine); Ordered 09/12/21 Ordered By: El Rudd Referrals: [facility] [Outside] Chery Bertrand MD [Physician] - 7-10 days Laura Harrington MD [Primary Care Provider] - 7-10 days Discharge Diet: Cardiac Discharge Activity: Resume usual activity Patient Instructions: Opioid Safety Activity Restrictions/Additional Instructions: [facility] follow[facility]up at [facility] Tuesday for LifeVest fitting. Please follow-up with Dr. Bertrand within next 1 week. Please follow-up with your primary care provider within next 1 week. You are on 2 medications for heart failure and blood pressure now. Metoprolol 2 times daily, losartan 1 time daily. You are also taking a water pill called Lasix 20 mg daily. You are on blood thinner with Xarelto 20 mg daily. 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 Please continue to follow-up with your providers. Discharge Attestations Time Spent in Discharge Care*: greater than 30 min Specific Discharge Activities: educating patient, educating and/or supporting family/caregiver, discussing with pcp/other providers, discussing with correctional casework specialist/social workers/dc planners, documenting/other paperwork and evaluating patient/reviewing data Status at Discharge: Cognitive status at discharge: cognitively intact , Behavioral status at discharge: cooperative , Functional status at discharge: independent ambulation Overall status at discharge: patient is back to baseline Quality Metrics Clinical Quality Measures During this hospital stay, did patient experience: None Coding Level of Care Code Acute Chg FW DC note Diagnoses Congestive heart failure with cardiomyopathy I50.9; I42.9 Atrial flutter I48.3 Atrial flutter type: typical GERD (gastroesophageal reflux disease) K21.9 Esophagitis presence: without esophagitis COPD (chronic obstructive pulmonary disease) J41.1 COPD type: chronic bronchitis Chronic bronchitis type: mucopurulent
--- NOTE | 2021-09-12 16:28 | PC.NURSE ---
Pt discharged home. IV removed no redness or swelling noted. Pts discharge instructions given to pt along with prescriptions and follow up appointment. Pt had no c/o pain or discomfort at the time of discharge.
== END 2021-09-12 16:22 | DRG 287 ==
LOC: ER 17:01 → MEDSURG 17:15 → CSU 09-10 16:19
PROVIDERS: Emergency Medicine; Internal Medicine Cardiovascular Disease; Admitting Provider Student in an Organized Health Care Education/Training Program; Emergency Provider Physician Assistant; PCP Family Medicine; Visit Provider Student in an Organized Health Care Education/Training Program
PROC: B211YZZ Fluoroscopy of Multiple Coronary Arteries using Other Contrast (ICD-10-PCS; principal; 2021-09-11 11:00)
DX: I50.21 Acute systolic (congestive) heart failure (principal); I48.3 Typical atrial flutter; I42.8 Other cardiomyopathies; I25.10 Atherosclerotic heart disease of native coronary artery without angina pectoris; E89.0 Postprocedural hypothyroidism; K21.9 Gastro-esophageal reflux disease without esophagitis; G14 Postpolio syndrome; I25.2 Old myocardial infarction; J41.1 Mucopurulent chronic bronchitis; Z87.891 Personal history of nicotine dependence; Z86.12 Personal history of poliomyelitis
CPT/HCPCS: 36415; 71045; 71275; 78452; 80053; 80061; 80306; 81003; 83036; 83540; 83550; 83735; 83880; 84100; 84439; 84443; 84481; 84484; 85025; 85378; 87426; 93005; 93017; 93306; 93454; 93970; 93978; 94640; 94664; 96372; 99285; A9500; C1760; C1769; C1887; C1894; G0378; J1644; J1650; J2250; J2785; J3010; J3490; J7030; J7611; Q9967

== ENCOUNTER → 2021-09-30 15:25 | Outpatient (BNVA) | payer MEDICARE, SELFPAY | PROVIDERS: PCP Family Medicine; Visit Provider Internal Medicine Cardiovascular Disease | DX: I42.9 Cardiomyopathy, unspecified (principal); I50.9 Heart failure, unspecified; R06.02 Shortness of breath | CPT/HCPCS: 80048; 83735; 83880 ==

== ENCOUNTER → 2021-10-07 10:15 | Outpatient (BNVA) | payer MEDICARE, SELFPAY | PROVIDERS: PCP Family Medicine; Visit Provider Family Medicine | DX: E89.0 Postprocedural hypothyroidism (principal); I10 Essential (primary) hypertension; I42.9 Cardiomyopathy, unspecified; R06.02 Shortness of breath; I48.3 Typical atrial flutter; I42.8 Other cardiomyopathies; J41.1 Mucopurulent chronic bronchitis; J32.9 Chronic sinusitis, unspecified; B97.89 Other viral agents as the cause of diseases classified elsewhere | CPT/HCPCS: 80053; 80061; 83735; 83880; 84439; 84443; 84481 ==

== ENCOUNTER 2021-10-19 14:52 | Emergency (ER) | payer MEDICARE, SELFPAY ==
--- NOTE | 2021-10-19 15:27 | ED_ITS ---
Documented by User: DIONE Rao 10/19/21 15:28 HPI - Nausea/Vomiting/Diarrhea General: Chief complaint: Nausea/Vomiting/Diarrhea Stated complaint: NAUSEA, DIARRHEA Time Seen by Provider: 10/20/21 00:13 History of Present Illness: HPI Narrative: Patient arrives via ambulance with complaints of chills and mainly diarrhea the last couple days. Patient said he is also had a fever. Denies any chest pain or shortness of breath. Patient does have some nonessential tremors. Patient does not appear in acute distress. [facility] ED PFSH: Medical History Atrial fibrillation/flutter BPH NOS w ur obs/LUTS COPD (chronic obstructive pulmonary disease) Elevated PSA GERD (gastroesophageal reflux disease) Hypothyroidism Seasonal allergies Subcutaneous mass of right forearm Surgical History H/O thyroidectomy S/P hernia repair bilateral inguinal Family History Father , AT AGE 60 ABESTOS No problems noted. Mother , AT IN HER 80'S No problems noted. Social History Smoking and tobacco status: former smoker Quit status (tobacco): has quit using tobacco Year quit tobacco: 2017 Former quit date comment: Hx of 1 PPD x 50 Years Second hand smoke exposure: No Smoking risk assessment/counseling performed?: No Alcohol intake: current Alcohol intake frequency: few times a week Alcohol type: hard liquor Counseling given: No Counseling given: No Lives independently: Yes Household members: spouse Marital status: Current occupational status: retired History of recent travel: No Current gender identity: Male Course Vital Signs: Vital signs: Vital Signs Temperature 99.3 F 10/19/21 22:55 Pulse Rate 110 H 10/19/21 22:55 Respiratory Rate 18 10/19/21 22:55 Blood Pressure 126/68 10/20/21 02:16 Pulse Oximetry 92 10/20/21 01:02 MDM - Nausea/Vomiting/Diarrhea Lab Data: Labs: Lab Results 10/19/21 10/19/21 10/19/21 16:15 16:15 16:15 WBC 5.2 10^3/uL 10^3/ uL (4.0-10.0) RBC 4.65 10^6/uL 10^6 /uL (4.1-5.3) Hgb 14.1 g/dL g/dL (11.7-16.6) Hct 41.5 % L % (42.0-52.0) MCV 89.2 fl fl (80-94) MCH 30.3 pg pg (28.0-34.0) MCHC 34.0 g/dL g/dL (30.0-36.0) RDW 13.8 % % (12.1-15.1) Plt Count 200 10^3/cmm 10^3 /cmm (130-400) MPV 9.0 fL fL (7.4-10.4) Neut % (Auto) 80.5 % % Lymph % (Auto) 11.6 % % Dickey % (Auto) 7.1 % % Eos % (Auto) 0.0 % % Baso % (Auto) 0.4 % % Neut # (Auto) 4.17 10^3/uL 10^3 /uL (1.8-7.7) Lymph # (Auto) 0.6 10^3/uL L 10^ 3/uL (0.8-4.8) Dickey # (Auto) 0.4 10^3/uL 10^3/ uL (0.2-0.9) Eos # (Auto) 0.0 10^3/uL 10^3/ uL (0.0-0.8) Baso # (Auto) 0.0 10^3/uL 10^3/ uL (0.0-0.1) Nucleated RBC % (a uto) 0 % % Nucleated RBCs # 0.0 /100WBC /100W BC Sodium 132 mmol/L L mmol /L (136-145) Potassium 4.1 mmol/L mmol/L (3.5-5.1) Chloride 94 mmol/L L mmol/ L (98-107) Carbon Dioxide 22 mmol/L mmol/L (22-29) Anion Gap 20.1 H (5-19) BUN 18 mg/dL mg/dL (8-23) Creatinine 1.2 mg/dL mg/dL (0.7-1.2) GFR Calculation Not Reportable Glucose 91 mg/dL mg/dL (65-115) Calculated Osmolal ity 275 mOsm/kg L mOs m/kg (285-295) Lactate Calcium 8.6 mg/dL mg/dL (8.5-10.5) Total Bilirubin 0.3 mg/dL mg/dL (0.15-1.2) AST 26 U/L U/L (0-40) ALT 15 U/L U/L (0-41) Alkaline Phosphata se 82 IU/L IU/L (40-130) Total Protein 6.9 g/dL g/dL (6.6-8.7) Albumin 3.8 g/dL g/dL (3.5-5.2) Globulin 3.1 g/dL g/dL (1.3-4.6) Lipase 25 U/L U/L (13-60) Urine Color Urine Appearance Urine pH Ur Specific Gravit y Urine Protein Urine Glucose (UA) Urine Ketones Urine Blood Urine Nitrate Urine Bilirubin Urine Urobilinogen Ur Leukocyte Monique ase Influenza Type A A g Negative (Negative) Influenza Type B A g Negative (Negative) 10/19/21 10/19/21 17:31 17:31 WBC RBC Hgb Hct MCV MCH MCHC RDW Plt Count MPV Neut % (Auto) Lymph % (Auto) Dickey % (Auto) Eos % (Auto) Baso % (Auto) Neut # (Auto) Lymph # (Auto) Dickey # (Auto) Eos # (Auto) Baso # (Auto) Nucleated RBC % (a uto) Nucleated RBCs # Sodium Potassium Chloride Carbon Dioxide Anion Gap BUN Creatinine GFR Calculation Glucose Calculated Osmolal ity Lactate 1.4 mmol/L mmol/L (0.5-2.2) Calcium Total Bilirubin AST ALT Alkaline Phosphata se Total Protein Albumin Globulin Lipase Urine Color Yellow (Yellow) Urine Appearance Clear (CLEAR) Urine pH 5 (5-7) Ur Specific Gravit y 1.015 (1.005-1.030) Urine Protein Neg (Negative) Urine Glucose (UA) Norm (Normal) Urine Ketones Negative (Negative) Urine Blood Neg (Negative) Urine Nitrate Negative (Negative) Urine Bilirubin Neg (Negative) Urine Urobilinogen Norm mg/dL mg/dL (Negative) Ur Leukocyte Monique ase Negative (Negative) Influenza Type A A g Influenza Type B A g Discharge Plan Discharge Patient Disposition: Home Clinical Impression: Viral syndrome COPD (chronic obstructive pulmonary disease) Qualifiers: COPD type: chronic bronchitis Chronic bronchitis type: unspecified Qualified Code(s): J42 - Unspecified chronic bronchitis Condition: Stable Prescriptions: New azithromycin 250 mg tablet 250 mg PO DAILY 4 Days Qty: 4 RF: 0 prednisone 20 mg tablet 20 mg PO BID 5 Days Qty: 10 RF: 0 Zofran 4 mg tablet 4 mg PO Q8H PRN (Reason: nausea and vomiting) Qty: 20 RF: 0 No Action pantoprazole 40 mg tablet,delayed release (DR/EC) 40 mg PO DAILY 30 Days Qty: 30 RF: 2 Xarelto 20 mg tablet 20 mg PO DAILY 30 Days Qty: 30 RF: 2 metoprolol succinate 50 mg tablet extended release 24 hr 50 mg PO BID 30 Days Qty: 60 RF: 2 levothyroxine 125 mcg tablet 125 mcg PO QD 30 Days Qty: 30 RF: 1 atorvastatin 40 mg tablet 10 mg PO BEDTIME 30 Days Qty: 10 RF: 5 losartan 25 mg tablet 12.5 mg PO DAILY 30 Days Qty: 30 RF: 2 Daliresp 500 mcg tablet 500 mcg PO DAILY Qty: 90 RF: 1 magnesium oxide 200 mg magnesium tablet 200 mg PO DAILY Qty: 90 RF: 3 potassium chloride 20 mEq tablet extended release 20 meq PO DAILY Qty: 90 RF: 3 furosemide 20 mg tablet 20 mg PO DIRECTED 30 Days Qty: 90 RF: 3 tamsulosin 0.4 mg Capsule 0.8 mg PO DAILY RF: 0 montelukast 10 mg Tablet 10 mg PO DAILY RF: 0 loratadine 10 mg Tablet 10 mg PO DAILY RF: 0 fluticasone propionate 50 mcg/actuation Delmar,Suspension 2 spray INTRANASAL DAILY RF: 0 Spiriva Respimat 1.25 mcg/actuation Mist 2 puff INHALATION DAILY RF: 0 fluticasone propionate 50 mcg/actuation Blister With Device 1 inh INHALATION BID RF: 0 albuterol sulfate 2.5 mg /3 mL (0.083 %) Solution For Nebulization 2.5 mg INHALATION QID PRN (Reason: Shortness Of Breath) RF: 0 ferrous gluconate 324 mg (37.5 mg iron) Tablet 324 mg PO BIDWM Qty: 60 RF: 0 Discharge Orders: Discharge ED (Routine); Ordered 10/20/21 Ordered By: Diego Verma Referrals: Laura Harrington MD [Primary Care Provider] - Discharge Diet: Regular Discharge Activity: Increase activity as tolerated Patient Instructions: Using Oxygen at Home (ED), COPD (Chronic Obstructive Pulmonary Disease) (ED), Acute Diarrhea (ED), Viral Syndrome (ED) Activity Restrictions/Additional Instructions: Follow-up with primary care physician in the next 3 to 5 days for reevaluation. Make sure to watch your oxygen levels at home and you want your pulse ox to be around 88 to 92%. Wear your at home oxygen as previously prescribed. Make sure you drink plenty of fluids and stay hydrated especially when having diarrhea. COVID-19 test is pending and results should be back within the next 36 to 48 hours. Call [facility] to find out COVID-19 test results. If you change your mind about monoclonal antibody infusions if you have a positive COVID-19 test you can call the [facility] Covid Hotline at [phone] with any questions or to set up monoclonal antibody infusions. Take medications as prescribed. Return to the ER or your medical provider if condition worsens. Please read and understand discharge instructions. Thank you for choosing [facility] for your healthcare needs today. Please realize this is an emergency room and that we are providing you with a medical screening exam and this may not be complete and all inclusive of all the testing and or work up that you may need to determine your ailment or severity of your illness. It is very important that you follow up as instructed or that you return to the Emergency Department should you have concerns or if your condition changes or worsens in any way. Coding Level of Care Code ED Junior Financial Analyst for Chg Fwd Exam Comprehensive Documented by User: MYRIAM Bobo 10/20/21 02:44 HPI - Nausea/Vomiting/Diarrhea General: Chief complaint: Nausea/Vomiting/Diarrhea Stated complaint: NAUSEA, DIARRHEA Time Seen by Provider: 10/20/21 00:13 History of Present Illness: HPI Narrative: Patient is a 75-year-old male who comes to the ED with fever, diarrhea and loss of appetite. Patient has a past medical history of COPD, CHF, BPH, hypothyroidism and GERD. He has oxygen at home and uses it as needed at approximately 2 L, but mostly wears oxygen while sleeping. Patient says he has been having diarrhea for the past month but says it has gotten worse over the last week. He had multiple episodes of diarrhea today. Today he felt warm and checked his temperature and it was 100.7. He reports chronic shortness of breath due to his COPD but says it seems to have slightly worsened over the past several days. He has a cough that is productive with a whitish sputum. Associated nausea: No Associated symtoms: Denies change in vision, chest pain, dysuria, fatigue, headache(s), nausea or palpitations Review of Systems Const: Reports: fever(s); Denies: chills or fatigue Eyes: Denies: change in vision or eye discomfort ENMT: Denies: throat pain, odynophagia, nasal discharge or nasal congestion Card: Denies: chest pain, palpitations, edema, swelling of feet/ankles, dyspnea on exertion or orthopnea Resp: Reports: dyspnea and productive cough; Denies: non-productive cough GI: Reports: diarrhea; Denies: abdominal pain, nausea, vomiting, constipation or hematochezia : Denies: flank pain, difficulty urinating, dysuria or hematuria Musc: Denies: neck pain, back pain or extremity swelling Skin/Breast: Denies: rash or new lesions Neuro: Denies: headache(s), numbness in extremities or weakness in extremities [facility] ED PFSH: Medical History Atrial fibrillation/flutter BPH NOS w ur obs/LUTS COPD (chronic obstructive pulmonary disease) Elevated PSA GERD (gastroesophageal reflux disease) Hypothyroidism Seasonal allergies Subcutaneous mass of right forearm Surgical History H/O thyroidectomy S/P hernia repair bilateral inguinal Family History Father , AT AGE 60 ABESTOS No problems noted. Mother , AT IN HER 80'S No problems noted. Social History Smoking and tobacco status: former smoker Quit status (tobacco): has quit using tobacco Year quit tobacco: 2017 Former quit date comment: Hx of 1 PPD x 50 Years Second hand smoke exposure: No Smoking risk assessment/counseling performed?: No Alcohol intake: current Alcohol intake frequency: few times a week Alcohol type: hard liquor Counseling given: No Counseling given: No Lives independently: Yes Household members: spouse Marital status: Current occupational status: retired History of recent travel: No Current gender identity: Male Physical Exam Const: COMMON NORMALS: no acute distress, patient oriented x3 and alert GENERAL APPEARANCE: cooperative HENMT: COMMON NORMALS: normocephalic HEAD & SCALP: normocephalic MOUTH: moist mucous membranes abnormal Details: parched THROAT: posterior oropharynx normal and uvula midline Neck/C-Spine: COMMON NORMALS: supple GENERAL: Yes normal visual inspection Resp: COMMON NORMALS: normal respiratory effort, No retractions and No use of accessory muscles EFFORT & INSPECTION: Yes able to speak in complete sentences, No tachypneic, No respiratory distress and No labored AUSCULTATION: diminished lung sounds bilateral in the lower lung lora Cardio: COMMON NORMALS: regular rate, regular rhythm, S1 normal heart sound present, S2 normal heart sound present, No gallops present (Cardio), No clicks present (Cardio), No murmurs present (Cardio) and Peripheral pulses 2+ throughout RATE: regular rate RHYTHM: regular rhythm HEART SOUNDS: S1 normal heart sound present and S2 normal heart sound present PERIPHERAL PULSES: Peripheral pulses 2+ throughout GI: COMMON NORMALS: Normal to inspection, nondistended, normoactive bowel sounds present, Soft to palpation, non-tender and no masses PALPATION: Yes Soft to palpation : COMMON NORMALS: Yes no CVA tenderness BLADDER/KIDNEY EXAM: Yes no CVA tenderness Back/Pelvis: COMMON NORMALS: no CVA tenderness Extremity: COMMON NORMALS: normal to inspection and no pedal edema Neuro: COMMON NORMALS: patient oriented x3 and moves all extremities SENSORIUM/ORIENTATION: Yes alert MOTOR EXAM: Tremors during motor activity present resting tremor bialteral upper extremity Skin: GENERAL SKIN EXAM: dry skin Course ED course: I discussed with patient the possibility of monoclonal antibody infusions to treat COVID-19 if his test is positive. I discussed the risk and benefits with patient. He states he is not interested in the monoclonal antibody infusions. I told patient that I will leave him the COVID-19 hotline contact information. He can call that number if he has any questions or concerns about COVID-19 or if he changes his mind and would like to get monoclonal antibody infusion treatments. Vital Signs: Vital signs: Vital Signs Temperature 99.3 F 10/19/21 22:55 Pulse Rate 110 H 10/19/21 22:55 Respiratory Rate 18 10/19/21 22:55 Blood Pressure 126/68 10/20/21 02:16 Pulse Oximetry 92 10/20/21 01:02 MDM - Nausea/Vomiting/Diarrhea MDM Narrative: Medical decision making narrative: Patient is a 75-year-old male who comes to the ED with diarrhea, fever. Patient has a past medical history of CHF, COPD and has oxygen at home. He is currently on 1 to 2 L as needed and wears it at night when he sleeps. He reports having diarrhea for the past month but says it has gotten worse in the past couple days. Fever started today. He endorses having a mild increase of shortness of breath along with a cough that is productive with white sputum. Denies chest pain. Vitals stable. He was at 94% O2 on room air. Patient appears in no acute distress or pain. His oral mucous membranes are parched. He has diminished breath sounds at the bases of his lungs bilaterally. No pedal edema or any other indications of fluid retention. Rest of exam is benign. CBC is unremarkable. Sodium was 132. Lactate 1.4, sputum culture obtained and pending. Chest x-ray showed hyperinflated lungs consistent with COPD. He has some mild atelectasis at the lung bases. No consolidation or infiltrates noted. EKG showed sinus rhythm with occasional PVCs. No ST segment elevation or depression seen. Dr. Clay reviewed EKG as well. Covid 19 [facility] test pending. Patient was given half a liter of IV fluids, Solu-Medrol and azithromycin while here in the ED. Patient was also given DuoNeb breathing treatment here in the ED right before discharge. He is stable for discharge home. I talked with patient about monoclonal antibody infusions as an option for treatment for COVID-19 if his test is positive and he said he is not interested in getting infusions. Patient diagnosed with a viral syndrome and COPD. He was discharged home with some Zofran, prednisone and azithromycin. He was told to continue wearing his at home oxygen as previously prescribed. Contact [facility] to find out COVID-19 results the next 36 to 48 hr. in his discharge paperwork I provided the [facility] Covid hotline number and told him to call out if he changes mind about monoclonal antibody infusions or if he has any questions about COVID- 19. Follow-up with PCP 3 to 5 days reevaluation. Return to ED precautions tata ahumada. Told to make sure he drinks plenty of fluids and stays hydrated especially when having active diarrhea. Patient understood and agreed with plan. Lab Data: Attestation: I reviewed the patient's lab results. Labs: Lab Results 10/19/21 10/19/21 10/19/21 16:15 16:15 16:15 WBC 5.2 10^3/uL 10^3/ uL (4.0-10.0) RBC 4.65 10^6/uL 10^6 /uL (4.1-5.3) Hgb 14.1 g/dL g/dL (11.7-16.6) Hct 41.5 % L % (42.0-52.0) MCV 89.2 fl fl (80-94) MCH 30.3 pg pg (28.0-34.0) MCHC 34.0 g/dL g/dL (30.0-36.0) RDW 13.8 % % (12.1-15.1) Plt Count 200 10^3/cmm 10^3 /cmm (130-400) MPV 9.0 fL fL (7.4-10.4) Neut % (Auto) 80.5 % % Lymph % (Auto) 11.6 % % Dickey % (Auto) 7.1 % % Eos % (Auto) 0.0 % % Baso % (Auto) 0.4 % % Neut # (Auto) 4.17 10^3/uL 10^3 /uL (1.8-7.7) Lymph # (Auto) 0.6 10^3/uL L 10^ 3/uL (0.8-4.8) Dickey # (Auto) 0.4 10^3/uL 10^3/ uL (0.2-0.9) Eos # (Auto) 0.0 10^3/uL 10^3/ uL (0.0-0.8) Baso # (Auto) 0.0 10^3/uL 10^3/ uL (0.0-0.1) Nucleated RBC % (a uto) 0 % % Nucleated RBCs # 0.0 /100WBC /100W BC Sodium 132 mmol/L L mmol /L (136-145) Potassium 4.1 mmol/L mmol/L (3.5-5.1) Chloride 94 mmol/L L mmol/ L (98-107) Carbon Dioxide 22 mmol/L mmol/L (22-29) Anion Gap 20.1 H (5-19) BUN 18 mg/dL mg/dL (8-23) Creatinine 1.2 mg/dL mg/dL (0.7-1.2) GFR Calculation Not Reportable Glucose 91 mg/dL mg/dL (65-115) Calculated Osmolal ity 275 mOsm/kg L mOs m/kg (285-295) Lactate Calcium 8.6 mg/dL mg/dL (8.5-10.5) Total Bilirubin 0.3 mg/dL mg/dL (0.15-1.2) AST 26 U/L U/L (0-40) ALT 15 U/L U/L (0-41) Alkaline Phosphata se 82 IU/L IU/L (40-130) Total Protein 6.9 g/dL g/dL (6.6-8.7) Albumin 3.8 g/dL g/dL (3.5-5.2) Globulin 3.1 g/dL g/dL (1.3-4.6) Lipase 25 U/L U/L (13-60) Urine Color Urine Appearance Urine pH Ur Specific Gravit y Urine Protein Urine Glucose (UA) Urine Ketones Urine Blood Urine Nitrate Urine Bilirubin Urine Urobilinogen Ur Leukocyte Monique ase Influenza Type A A g Negative (Negative) Influenza Type B A g Negative (Negative) 10/19/21 10/19/21 17:31 17:31 WBC RBC Hgb Hct MCV MCH MCHC RDW Plt Count MPV Neut % (Auto) Lymph % (Auto) Dickey % (Auto) Eos % (Auto) Baso % (Auto) Neut # (Auto) Lymph # (Auto) Dickey # (Auto) Eos # (Auto) Baso # (Auto) Nucleated RBC % (a uto) Nucleated RBCs # Sodium Potassium Chloride Carbon Dioxide Anion Gap BUN Creatinine GFR Calculation Glucose Calculated Osmolal ity Lactate 1.4 mmol/L mmol/L (0.5-2.2) Calcium Total Bilirubin AST ALT Alkaline Phosphata se Total Protein Albumin Globulin Lipase Urine Color Yellow (Yellow) Urine Appearance Clear (CLEAR) Urine pH 5 (5-7) Ur Specific Gravit y 1.015 (1.005-1.030) Urine Protein Neg (Negative) Urine Glucose (UA) Norm (Normal) Urine Ketones Negative (Negative) Urine Blood Neg (Negative) Urine Nitrate Negative (Negative) Urine Bilirubin Neg (Negative) Urine Urobilinogen Norm mg/dL mg/dL (Negative) Ur Leukocyte Monique ase Negative (Negative) Influenza Type A A g Influenza Type B A g Imaging Data^: CXR: Attestation: I personally reviewed and interpreted this imaging study as follows: Radiologist's impression: [address] [id number] ReportSigned Patient: Michael RogersUncurry #: [id number]#:[id number]/Sex: 75 / MADM Date: 10/19/21Loc: ERRoom/Bed:Attending Dr: Ordering Provider/Ordering MD: Ángela Paul , [facility] Date of Service: 10/19/21 Procedure(s): XR chest 1V portable [id number] Accession Number(s): [id number] Report Number: [id number] PROCEDURE INFORMATION: Exam: XR Chest Exam date and time: 10/19/2021 4:15 PM Age: 75 years old Clinical indication: Fever TECHNIQUE: Imaging protocol: XR of the chest. Views: 1 view. COMPARISON: CR XR chest 1V portable [id number] 09/09/2021 10:09 AM FINDINGS: Lungs: The lungs are hyperinflated, consistent with COPD. No consolidative pulmonary infiltrate noted. Mild atelectasis versus fibrosis at the lung bases. Pleural spaces: Small calcified pleural plaques are noted bilaterally. No pleural effusion. No pneumothorax. Heart/Mediastinum: No cardiomegaly. Bones/joints: Unremarkable. XR/XR chest 1V portable [id number] IMPRESSION: 1. The lungs are hyperinflated, consistent with COPD. 2. Small calcified pleural plaques are noted bilaterally. No pleural effusion. No pneumothorax. 3. No consolidative pulmonary infiltrate noted. 4. Mild atelectasis versus fibrosis at the lung bases. This is new when compared to 09/09/2021. Dictated By:Yazan Reynoso MDSigned By:Yazan Reynoso MDSigned Date/Time:10/19/21 [id number]/ 1615 EKG Data^: EKG 1: Attestation: I personally reviewed and interpreted this EKG as follows: EKG interpretation date: 10/20/21 Interpretation: Sinus rhythm with occasional PVCs. [address] segment elevation or depression seen. Dr. Clay reviewed EKG as well. Discharge Plan Discharge Patient Disposition: Home Clinical Impression: Viral syndrome COPD (chronic obstructive pulmonary disease) Qualifiers: COPD type: chronic bronchitis Chronic bronchitis type: unspecified Qualified Code(s): J42 - Unspecified chronic bronchitis Condition: Stable Prescriptions: New azithromycin 250 mg tablet 250 mg PO DAILY 4 Days Qty: 4 RF: 0 prednisone 20 mg tablet 20 mg PO BID 5 Days Qty: 10 RF: 0 Zofran 4 mg tablet 4 mg PO Q8H PRN (Reason: nausea and vomiting) Qty: 20 RF: 0 No Action pantoprazole 40 mg tablet,delayed release (DR/EC) 40 mg PO DAILY 30 Days Qty: 30 RF: 2 Xarelto 20 mg tablet 20 mg PO DAILY 30 Days Qty: 30 RF: 2 metoprolol succinate 50 mg tablet extended release 24 hr 50 mg PO BID 30 Days Qty: 60 RF: 2 levothyroxine 125 mcg tablet 125 mcg PO QD 30 Days Qty: 30 RF: 1 atorvastatin 40 mg tablet 10 mg PO BEDTIME 30 Days Qty: 10 RF: 5 losartan 25 mg tablet 12.5 mg PO DAILY 30 Days Qty: 30 RF: 2 Daliresp 500 mcg tablet 500 mcg PO DAILY Qty: 90 RF: 1 magnesium oxide 200 mg magnesium tablet 200 mg PO DAILY Qty: 90 RF: 3 potassium chloride 20 mEq tablet extended release 20 meq PO DAILY Qty: 90 RF: 3 furosemide 20 mg tablet 20 mg PO DIRECTED 30 Days Qty: 90 RF: 3 tamsulosin 0.4 mg Capsule 0.8 mg PO DAILY RF: 0 montelukast 10 mg Tablet 10 mg PO DAILY RF: 0 loratadine 10 mg Tablet 10 mg PO DAILY RF: 0 fluticasone propionate 50 mcg/actuation Delmar,Suspension 2 spray INTRANASAL DAILY RF: 0 Spiriva Respimat 1.25 mcg/actuation Mist 2 puff INHALATION DAILY RF: 0 fluticasone propionate 50 mcg/actuation Blister With Device 1 inh INHALATION BID RF: 0 albuterol sulfate 2.5 mg /3 mL (0.083 %) Solution For Nebulization 2.5 mg INHALATION QID PRN (Reason: Shortness Of Breath) RF: 0 ferrous gluconate 324 mg (37.5 mg iron) Tablet 324 mg PO BIDWM Qty: 60 RF: 0 Discharge Orders: Discharge ED (Routine); Ordered 10/20/21 Ordered By: Diego Verma Referrals: Laura Harrington MD [Primary Care Provider] - Discharge Diet: Regular Discharge Activity: Increase activity as tolerated Patient Instructions: Using Oxygen at Home (ED), COPD (Chronic Obstructive Pulmonary Disease) (ED), Acute Diarrhea (ED), Viral Syndrome (ED) Activity Restrictions/Additional Instructions: Follow-up with primary care physician in the next 3 to 5 days for reevaluation. Make sure to watch your oxygen levels at home and you want your pulse ox to be around 88 to 92%. Wear your at home oxygen as previously prescribed. Make sure you drink plenty of fluids and stay hydrated especially when having diarrhea. COVID-19 test is pending and results should be back within the next 36 to 48 hours. Call [facility] to find out COVID-19 test results. If you change your mind about monoclonal antibody infusions if you have a positive COVID-19 test you can call the [facility] Covid Hotline at [phone] with any questions or to set up monoclonal antibody infusions. Take medications as prescribed. Return to the ER or your medical provider if condition worsens. Please read and understand discharge instructions. Thank you for choosing [facility] for your healthcare needs today. Please realize this is an emergency room and that we are providing you with a medical screening exam and this may not be complete and all inclusive of all the testing and or work up that you may need to determine your ailment or severity of your illness. It is very important that you follow up as instructed or that you return to the Emergency Department should you have concerns or if your condition changes or worsens in any way. Coding Level of Care Code ED Junior Financial Analyst for [place] Exam Comprehensive
[2021-10-19 16:08] VITALS: BP 109/70; PULSE 69; RESP 18; TEMP 37.6; O2SAT 94; BMI 28.8
--- NOTE | 2021-10-19 16:15 | XRR_ITS ---
PROCEDURE INFORMATION: Exam: XR Chest Exam date and time: 10/19/2021 4:15 PM Age: 75 years old Clinical indication: Fever TECHNIQUE: Imaging protocol: XR of the chest. Views: 1 view. COMPARISON: CR XR chest 1V portable [id number] 09/09/2021 10:09 AM FINDINGS: Lungs: The lungs are hyperinflated, consistent with COPD. No consolidative pulmonary infiltrate noted. Mild atelectasis versus fibrosis at the lung bases. Pleural spaces: Small calcified pleural plaques are noted bilaterally. No pleural effusion. No pneumothorax. Heart/Mediastinum: No cardiomegaly. Bones/joints: Unremarkable. XR/XR chest 1V portable [id number] IMPRESSION: 1. The lungs are hyperinflated, consistent with COPD. 2. Small calcified pleural plaques are noted bilaterally. No pleural effusion. No pneumothorax. 3. No consolidative pulmonary infiltrate noted. 4. Mild atelectasis versus fibrosis at the lung bases. This is new when compared to 09/09/2021.
[2021-10-19 16:27] LABS: Basophils % 0.4 %; Hematocrit 41.5 % (42.0-52.0); Hemoglobin 14.1 g/dL (11.7-16.6); Lymphocytes # 0.6 10^3/uL (0.8-4.8); Lymphocytes % 11.6 %; Mean Corpuscular Hemoglobin 30.3 pg (28.0-34.0); Mean Corpuscular Volume 89.2 fl (80-94); Monocytes # 0.4 10^3/uL (0.2-0.9); Monocytes % 7.1 %; Neutrophils # 4.17 10^3/uL (1.8-7.7); Neutrophils % 80.5 %; Nucleated Red Blood Cells % 0 %; Platelet Count 200 10^3/cmm (130-400); Red Blood Count 4.65 10^6/uL (4.1-5.3); Red Cell Distribution Width 13.8 % (12.1-15.1); White Blood Count 5.2 10^3/uL (4.0-10.0)
[2021-10-19 16:45] LABS: Influenza A by IFA Negative (Negative); Influenza B by IFA Negative (Negative)
[2021-10-19 16:58] LABS: Alanine Aminotransferase 15 U/L (0-41); Albumin Level 3.8 g/dL (3.5-5.2); Alkaline Phosphatase 82 IU/L (40-130); Anion Gap 20.1 (5-19); Aspartate Amino Transferase 26 U/L (0-40); Blood Urea Nitrogen 18 mg/dL (8-23); Calcium 8.6 mg/dL (8.5-10.5); Carbon Dioxide 22 mmol/L (22-29); Chloride 94 mmol/L (98-107); Creatinine Clr Calc Pharmacy 67.8477; Globulin 3.1 g/dL (1.3-4.6); Glucose 91 mg/dL (65-115); Lipase 25 U/L (13-60); Osmolality Calculated 275 mOsm/kg (285-295); Potassium 4.1 mmol/L (3.5-5.1); Sodium 132 mmol/L (136-145); Total Bilirubin 0.3 mg/dL (0.15-1.2); Total Protein 6.9 g/dL (6.6-8.7)
[2021-10-19 17:55] LABS: Add Urine Microscopic? NO; Charge for UA Resulting for Rev
[2021-10-19 18:01] LABS: Bilirubin Urine Neg (Negative); Blood Urine Neg (Negative); Glucose Urine UA Norm (Normal); Ketones Urine Negative (Negative); Leukocyte Esterase Urine Negative (Negative); Nitrate Urine Negative (Negative); Protein Urine Neg (Negative); Specific Gravity, Urine 1.015 (1.005-1.030); Urine Appearance Clear (CLEAR); Urine Color Yellow (Yellow); Urobilinogen Urine Norm (Negative); pH Urine 5 (5-7)
[2021-10-19 18:05] LABS: Lactate (Lactic Acid level) 1.4 mmol/L (0.5-2.2)
[2021-10-19 22:55] VITALS: BP 102/69; PULSE 110; RESP 18; TEMP 37.4; O2SAT 99
--- NOTE | 2021-10-19 22:55 | PC.NURSE ---
patient brought into triage for recheck. vitals obtained and charted. patient in no obvious distress. Patient sitting in wheelchair. patient Aox4 upon assessment.
[2021-10-20 00:24] VITALS: BP 129/76; O2SAT 92
--- NOTE | 2021-10-20 00:35 | ECG_ITS ---
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 Measurements Intervals [place] Rate: 67 P: 76 IL: 161 QRS: -17 QRSD: 101 T: 77 QT: 410 QTc: 435 Interpretive Statements SINUS RHYTHM WITH OCCASIONAL VENTRICULAR PREMATURE COMPLEXES MINIMAL ST DEPRESSION [0.025+ mV ST DEPRESSION] Compared to ECG 09/09/2021 17:49:03 Ventricular premature complex(es) now present ST (T wave) deviation now present Atrial flutter no longer present Left-axis deviation no longer present Incomplete right bundle-branch block no longer present Myocardial infarct finding no longer present T-wave abnormality no longer present Possible ischemia no longer present Electronically Signed On 10-20-2021 17:23:56 COBBLER UPPER by Chery Bertrand M.D. [id number]
[2021-10-20 01:02] VITALS: O2SAT 92
[2021-10-20] MEDS: sodium chloride 0.9% 500 ML 999 ML IV (01:04)
[2021-10-20] MEDS: ipratropium-albuterol 3 mL Neb 6 ML INHALATION (01:29)
[2021-10-20] MEDS: azithromycin 250 mg Tablet 500 MG PO (02:13)
[2021-10-20 02:16] VITALS: BP 126/68
[2021-10-20 17:08] LABS: Quest SARS-CoV-2 RNA DETECTED (NOT DETECTED)
--- NOTE | 2021-10-22 18:24 | PC.NURSE ---
Informed of Positive COVID test
== END 2021-10-20 02:19 | disposition home or self-care (01) ==
PROVIDERS: Nurse Practitioner Family; Emergency Provider Physician Assistant; PCP Family Medicine
DX: J42 Unspecified chronic bronchitis (principal); U07.1 COVID-19; Z87.891 Personal history of nicotine dependence
CPT/HCPCS: 71045; 80053; 81003; 83605; 83690; 85025; 87070; 87077; 87186; 87205; 87635; 87804; 93005; 96374; 99284; J2930; J7040; Q0144

== ENCOUNTER → 2021-12-02 10:43 | Outpatient (BNVA) | payer MEDICARE, SELFPAY | PROVIDERS: PCP Family Medicine; Visit Provider Internal Medicine Cardiovascular Disease | DX: I48.3 Typical atrial flutter (principal); I50.9 Heart failure, unspecified; I42.9 Cardiomyopathy, unspecified; K21.9 Gastro-esophageal reflux disease without esophagitis; J41.1 Mucopurulent chronic bronchitis; R06.02 Shortness of breath; I42.8 Other cardiomyopathies; Z87.891 Personal history of nicotine dependence | CPT/HCPCS: 99214 ==

== ENCOUNTER → 2022-01-29 07:55 | Outpatient (BNVA) | payer MEDICARE, SELFPAY | PROVIDERS: PCP Family Medicine; Visit Provider Otolaryngology | DX: J31.0 Chronic rhinitis (principal); J34.2 Deviated nasal septum; E86.0 Dehydration; Z87.891 Personal history of nicotine dependence | CPT/HCPCS: 99203 ==

== ENCOUNTER → 2022-02-01 11:06 | Outpatient (BNVA) | payer MEDICARE, SELFPAY | PROVIDERS: PCP Family Medicine; Visit Provider Family Medicine | DX: E03.9 Hypothyroidism, unspecified (principal); J44.9 Chronic obstructive pulmonary disease, unspecified | CPT/HCPCS: 80053; 84439; 84443; 84481; 85025 ==

== ENCOUNTER 2022-06-09 08:31 | Outpatient (CLI) | payer MEDICARE, SELFPAY | END 2022-06-09 08:32 | disposition home or self-care (01) | LOC: LAB 08:34 | PROVIDERS: PCP Family Medicine; Visit Provider Urology | DX: R97.20 Elevated prostate specific antigen [PSA] (principal) | CPT/HCPCS: 84153 ==

== ENCOUNTER → 2022-06-14 13:24 | Outpatient (BNVA) | payer MEDICARE, SELFPAY | PROVIDERS: PCP Family Medicine; Visit Provider Urology | DX: N40.1 Benign prostatic hyperplasia with lower urinary tract symptoms (principal); R97.20 Elevated prostate specific antigen [PSA] | CPT/HCPCS: 51741; 51798; 99213 ==

== ENCOUNTER → 2022-07-15 09:33 | Outpatient (BNVA) | payer MEDICARE, SELFPAY | PROVIDERS: PCP Family Medicine; Visit Provider Family Medicine | DX: Z00.00 Encounter for general adult medical examination without abnormal findings (principal); Z71.89 Other specified counseling; Z53.20 Procedure and treatment not carried out because of patient's decision for unspecified reasons; Z28.21 Immunization not carried out because of patient refusal; N40.1 Benign prostatic hyperplasia with lower urinary tract symptoms; E89.0 Postprocedural hypothyroidism; I48.3 Typical atrial flutter; K21.9 Gastro-esophageal reflux disease without esophagitis; I50.9 Heart failure, unspecified; I42.9 Cardiomyopathy, unspecified; I42.8 Other cardiomyopathies; J30.2 Other seasonal allergic rhinitis; J44.9 Chronic obstructive pulmonary disease, unspecified; I10 Essential (primary) hypertension; E03.9 Hypothyroidism, unspecified | CPT/HCPCS: 80053; 83735; 84443; 85025 ==

== ENCOUNTER 2022-09-08 13:01 | Outpatient (CLI) | payer MEDICARE, SELFPAY ==
--- NOTE | 2022-09-08 14:15 | USCV_ITS ---
Michael Rogers Age: 76 Gender: M : 1945 Exam Date: 09/08/2022 13:57 Ordering Phys: Chery Bertrand MD ([email or web address]) Technologist: Irene Schafer Exam Location: [facility] [place] Indication: Heart failure BP: 130 / 78 HR: 59 Rhythm: Sinus Technical Quality: Adequate MEASUREMENTS (Male / Female) Normal Values 2D ECHO LV Diastolic Diameter PLAX 4.6 cm 4.2 - 5.9 / 3.9 - 5.3 cm LV Systolic Diameter PLAX 3.3 cm IVS Diastolic Thickness 1.3 cm 0.6 - 1.0 / 0.6 - 0.9 cm IVS Systolic Thickness 1.4 cm LVPW Diastolic Thickness 1.2 cm 0.6 - 1.0 / 0.6 - 0.9 cm LVPW Systolic Thickness 1.6 cm LVOT Diameter 2.1 cm LV Ejection Fraction 2D Teich 54.5 % LV Ejection Fraction MOD 2C 53.3 % LV Ejection Fraction 2C AL 52.3 % LA Diameter 3.2 cm LA Width 3.6 cm LA Height 6.2 cm RA Width 3.5 cm RA Height 5.7 cm Aorta at Sinotubular Diameter 3.5 cm IVC Diameter 1.8 cm M-MODE MV E Point Septal Separation 0.4 cm DOPPLER AV Peak Velocity 109.0 cm/s LVOT Peak Velocity 102.0 cm/s AV Area Cont Eq vti 2.9 cm squared AV Area Cont Eq pk 3.3 cm squared MV Peak Velocity 97.0 cm/s MV Area PHT 2.2 cm squared Mitral E to A Ratio 0.5 MV E' Velocity 27.5 cm/s Mitral E to MV E' Ratio 5.8 Mitral E to LV E' Lateral Ratio 6.1 Mitral E to LV E' Septal Ratio 5.4 TR Peak Velocity 78.7 cm/s TR Peak Gradient 2.5 mmHg Right Atrial Pressure 3.0 mmHg Pulmonary Artery Systolic Pressu 5.5 mmHg PV Peak Velocity 98.0 cm/s RV Acceleration Time 0.1 s RV Ejection Time 0.3 s RV AcT/ET 0.4 FINDINGS Left Ventricle Normal left ventricular size, systolic function and wall thickness, with no regional wall motion abnormalities. Left ventricular ejection fraction is estimated at 55 %. Normal diastolic function. Right Ventricle Normal right ventricular size and systolic function. Right ventricular systolic pressure 5.5 mmHg. Right Atrium Normal right atrial size. Left Atrium Normal left atrial size. Mitral Valve Structurally normal mitral valve. No mitral valve stenosis. Trace mitral valve regurgitation. Aortic Valve Structurally normal trileaflet aortic valve. No aortic valve stenosis. No aortic valve regurgitation. Tricuspid Valve Structurally normal tricuspid valve. No tricuspid valve stenosis. Trace tricuspid valve regurgitation. Pulmonic Valve Pulmonic valve not well visualized. Pericardium No pericardial effusion. Aorta Normal size aortic root and proximal ascending aorta. IVC Inferior vena cava not visualized. CONCLUSIONS 1. Normal left ventricular size, systolic function and wall thickness, with no regional wall motion abnormalities. Left ventricular ejection fraction is estimated at 55 %. Normal diastolic function. 2. Trace mitral valve regurgitation. 3. When compared to study dated 09/10/2021, Left ventricular systolic function has normalized. Chery Bertrand MD (Electronically Signed) Final Date: 12 September 2022 18:11 S
== END 2022-09-08 13:02 | disposition home or self-care (01) ==
LOC: RAD 13:06
PROVIDERS: PCP Family Medicine; Visit Provider Internal Medicine Cardiovascular Disease
DX: I42.8 Other cardiomyopathies (principal); I42.9 Cardiomyopathy, unspecified; I50.9 Heart failure, unspecified; R06.02 Shortness of breath; I34.0 Nonrheumatic mitral (valve) insufficiency
CPT/HCPCS: 93306

== ENCOUNTER → 2022-12-02 11:15 | Outpatient (BNVA) | payer MEDICARE, SELFPAY | PROVIDERS: PCP Family Medicine; Visit Provider Family Medicine | DX: I42.8 Other cardiomyopathies (principal); J30.2 Other seasonal allergic rhinitis; J41.1 Mucopurulent chronic bronchitis; I50.9 Heart failure, unspecified; I42.9 Cardiomyopathy, unspecified; I48.3 Typical atrial flutter; K21.9 Gastro-esophageal reflux disease without esophagitis; N40.1 Benign prostatic hyperplasia with lower urinary tract symptoms; E89.0 Postprocedural hypothyroidism; I10 Essential (primary) hypertension; E03.9 Hypothyroidism, unspecified | CPT/HCPCS: 80053; 80061; 84443 ==

== ENCOUNTER → 2023-06-01 10:10 | Outpatient (BNVA) | payer MEDICARE, SELFPAY | PROVIDERS: PCP Family Medicine; Visit Provider Family Medicine | DX: E89.0 Postprocedural hypothyroidism (principal); I10 Essential (primary) hypertension; Z12.5 Encounter for screening for malignant neoplasm of prostate; N40.1 Benign prostatic hyperplasia with lower urinary tract symptoms; I48.3 Typical atrial flutter; J41.1 Mucopurulent chronic bronchitis; K21.9 Gastro-esophageal reflux disease without esophagitis; I50.9 Heart failure, unspecified; I42.9 Cardiomyopathy, unspecified; I42.8 Other cardiomyopathies; J30.2 Other seasonal allergic rhinitis; R97.20 Elevated prostate specific antigen [PSA] | CPT/HCPCS: 80053; 80061; 84439; 84443; 84481; G0103 ==

== ENCOUNTER → 2023-11-30 10:55 | Outpatient (BNVA) | payer MEDICARE, SELFPAY | PROVIDERS: PCP Family Medicine; Visit Provider Family Medicine | DX: I10 Essential (primary) hypertension (principal); E03.9 Hypothyroidism, unspecified; E89.0 Postprocedural hypothyroidism | CPT/HCPCS: 80048; 84439; 84443; 84481 ==

== ENCOUNTER → 2024-06-04 09:40 | Outpatient (BNVA) | payer MEDICARE, SELFPAY | PROVIDERS: PCP Family Medicine; Visit Provider Family Medicine | DX: Z12.5 Encounter for screening for malignant neoplasm of prostate (principal); I10 Essential (primary) hypertension; N40.1 Benign prostatic hyperplasia with lower urinary tract symptoms; R97.20 Elevated prostate specific antigen [PSA] | CPT/HCPCS: 80053; 80061; 84153; 84443 ==

== ENCOUNTER → 2025-06-10 09:27 | Outpatient (BNVA) | payer MEDICARE, SELFPAY | PROVIDERS: PCP Family Medicine; Visit Provider Family Medicine | DX: I10 Essential (primary) hypertension (principal); R97.20 Elevated prostate specific antigen [PSA]; Z12.5 Encounter for screening for malignant neoplasm of prostate | CPT/HCPCS: 80053; 80061; 84153; 84443 ==